=== PATIENT | female | born 1980 | race Caucasian/White ===

== ENCOUNTER 2018-11-06 18:55 | Inpatient (IN) | payer OTHER ==
[2018-11-06] MEDS ORDERED: GLUCOPHAGE PO ONE (21:40)
[2018-11-06] MEDS ORDERED: TYLENOL PO PRN (21:52)
[2018-11-06] MEDS ORDERED: GLUCOPHAGE PO SCH (22:00)
[2018-11-07 06:02] LABS: Hematocrit 36.1 % (30.3-42.9); Hemoglobin 12.3 gm/dl (10.1-14.3); Mean Corpuscular HGB Conc 34 % (30-34); Mean Corpuscular Volume 96 fl (79-97); Platelet Count 168 K/mm3 (140-440); Red Blood Count 3.76 M/mm3 (3.65-5.03); Red Cell Distribution Width 14.4 % (13.2-15.2)
[2018-11-07 06:24] LABS: Alanine Aminotransferase 10 units/L (7-56); Albumin 3.3 g/dL (3.9-5); BUN/Creatinine Ratio 27; Blood Urea Nitrogen 8 mg/dL (7-17); Calcium 9.9 mg/dL (8.4-10.2); Hemolysis Index 11
[2018-11-07] MEDS: HumuLIN R SUB-Q SCH ×3 (09:37→20:19)
--- NOTE | 2018-11-07 10:12 | Progress Note ---
Assessment and Plan - Patient Problems (1) 25 weeks gestation of Current Visit: Yes Status: Acute (2) Type 2 diabetes mellitus affecting in second trimester, antepartum Current Visit: Yes Status: Acute Plan to address problem: Continue glucose fasting and 2-hr PP. ADA diet. Insulin regimen 30R/34N in AM, 24R at dinner, 35N QHS. OB sonogram. (3) Uncontrolled blood glucose Current Visit: Yes Status: Acute (4) Advanced maternal age (AMA) in Current Visit: Yes Status: Acute (5) Previous section Current Visit: Yes Status: Acute Subjective - Subjective Date of service: 11/07/18 Principal diagnosis: SIUP at 25 weeks gestation Interval history: Patient is a 38 year old , LMP 04/30/18, EDC 02/16/19 at 25 weeks and 4 days gestation who was admitted last night for glucose control. She is a patient of [facility]. She has pre-gestational diabetes and was on metformin and insulin during the . Her fasting glucose has been between 105-166, and 2-hr PP between 119-259. She denies any contraction, fluid leakage or bleeding. She reports good movement. She is currently on 30R and 34N in AM, 24R at dinner, and 35N at bedtime. Objective - Vital Signs Vital Signs: Vital Signs - 12hr 11/06/18 11/07/18 23:12 09:26 Pulse Rate 77 83 Blood Pressure 118/62 117/59 - Exam Cardiovascular: Normal S1, Normal S2 Lungs: Clear to auscultation Vulva: both: normal FHR: category 1 Uterine Contraction Monitor Mode: External Uterine Contraction Pattern: Absent Deep Tendon Reflex Grade: Normal +2 - Labs Labs: Abnormal Labs 11/07/18 11/07/18 05:36 05:36 MCH 33 H Sodium 136 L Potassium 3.5 L Carbon Dioxide 20 L Creatinine 0.3 L Albumin 3.3 L Laboratory Results - last 24 hr 11/06/18 11/07/18 11/07/18 20:07 05:36 05:36 WBC 9.5 RBC 3.76 Hgb 12.3 Hct 36.1 MCV 96 MCH 33 H MCHC 34 RDW 14.4 Plt Count 168 Sodium 136 L Potassium 3.5 L Chloride 104.9 Carbon Dioxide 20 L Anion Gap 15 BUN 8 Creatinine 0.3 L Estimated GFR > 60 BUN/Creatinine Ratio 27 Glucose 99 POC Glucose 89 Hemoglobin A1c Calcium 9.9 Total Bilirubin 0.20 AST 13 ALT 10 Alkaline Phosphatase 49 Total Protein 6.4 Albumin 3.3 L Albumin/Globulin Ratio 1.1 11/07/18 11/07/18 11/07/18 05:36 06:19 09:47 WBC RBC Hgb Hct MCV MCH MCHC RDW Plt Count Sodium Potassium Chloride Carbon Dioxide Anion Gap BUN Creatinine Estimated GFR BUN/Creatinine Ratio Glucose POC Glucose 84 90 Hemoglobin A1c 5.7 Calcium Total Bilirubin AST ALT Alkaline Phosphatase Total Protein Albumin Albumin/Globulin Ratio - Results US- obstetric: pending
--- NOTE | 2018-11-07 15:03 | Ultrasound Report ---
ULTRASOUND BIOPHYSICAL PROFILE ULTRASOUND OB LIMITED INDICATION: Type 2 diabetes during , well-being. TECHNIQUE: Transabdominal ultrasound imaging. COMPARISON: None FINDINGS: breathing movement = 2 Gross body movement = 2 tone = 2 Qualitative amniotic fluid volume = 2 Total biophysical score = 8/8 A single intrauterine is identified. Amniotic fluid index is 21.6 cm. Presentation is cephalic. heart rate is 141 beats per minute. IMPRESSION: biophysical profile equals 8/8. Signer Name: Davian Lane Jr, MD Signed: 11/07/2018 2:58 PM Workstation Name: [id number]
--- NOTE | 2018-11-07 16:24 | Consultation ---
History of Present Illness Consult date: 11/07/18 Reason for consult: medical complication (diabetes) History of present illness: To: Dr. Nehal Bowman et al From: Aric Lechuga M.D. RE: LOPEZ GILSONMOUSTAPHA Tootie : 82 Poorly controlled diabetes at 25 weeks. Date: Wednesday, November 07, 2018 Patient is a 38 year old , LMP 04/30/18, EDC 02/16/19 at 25 weeks and 4 days gestation who was admitted last night for glucose control. She is a patient of [facility]. She has pre-gestational diabetes and was on metformin and insulin during the . Her fasting glucose has been between 105-166, and 2-hr PP between 119-259. She denies any contraction, fluid leakage or bleeding. She reports good movement. She is currently on 30R and 34N in AM, 24R at dinner, and 35N at bedtime. Her current blood sugars have been 89, 84, 90, 132 Past History - Obstetrical History : 5 Medications and Allergies Allergies Allergy/AdvReac Type Severity Reaction Status Date / Time No Known Allergies Allergy Verified 09/02/13 19:54 Home Medications Medication Instructions Recorded Confirmed Last Taken Type Ibuprofen [Motrin 600 MG tab] 600 mg PO Q6H PRN #30 tablet 10/03/13 11/07/18 Unknown Rx oxyCODONE /ACETAMINOPHEN [Percocet 2 tab PO Q4H PRN #30 tablet 10/03/13 11/07/18 Unknown Rx 5/325 mg] Sitagliptin Phos/Metformin HCl 1 tab PO BID #60 tablet 10/04/13 11/07/18 Unknown Rx [Janumet 50-1,000 mg] Active Meds: Active Medications Acetaminophen (Tylenol) 650 mg PO Q4H PRN PRN Reason: Pain MILD(1-3)/Fever >100.5/DANIELLE Insulin Human NPH (Humulin N) 34 unit SUB-Q QDDIAB [facility] Last Admin: 11/07/18 09:41 Dose: 34 unit Documented by: Insulin Human NPH (Humulin N) 35 unit SUB-Q QHS [facility] Last Admin: 11/06/18 23:13 Dose: 35 unit Documented by: Insulin Human Regular (Humulin R) 30 units SUB-Q QDDIAB [facility] Last Admin: 11/07/18 09:37 Dose: 30 units Documented by: Insulin Human Regular (Humulin R) 24 units SUB-Q QPMDIAB@1900 [facility] - Vital Signs Vital signs: Vital Signs Pulse BP 80 136/60 11/06/18 19:36 11/06/18 19:36 Temp Pulse Resp BP Pulse Ox 98.4 F 80 18 123/58 11/07/18 12:12 11/07/18 12:16 11/07/18 12:12 11/07/18 12:16 Results Result Diagrams: 11/07/18 05:36 11/07/18 05:36 Abnormal lab results 11/07/18 11/07/18 11/07/18 Range/Units 05:36 05:36 12:26 MCH 33 H (28-32) pg Sodium 136 L (137-145) mmol/L Potassium 3.5 L (3.6-5.0) mmol/L Carbon Dioxide 20 L (22-30) mmol/L Creatinine 0.3 L (0.7-1.2) mg/dL POC Glucose 132 H (70-105) Albumin 3.3 L (3.9-5) g/dL All other labs normal. Assessment and Plan ASSESSMENT: IUP at 25 weeks with pregestational diabetes. Improved control. Stable for discharge home and outpatient follow-up. Recommendations: 1. Nutritional counseling prior to discharge. 2. Consider social work consultation. 3. Discharge home. 4. Maintain dose insulin regimen 1. AM: 34 NPH and 30 Regular 2. PM: 24 Regular 3. HS: 35 NPH 5. Following discharge, you may schedule a follow-up appointment for this patient to evaluate her progress in one week with [facility]. Thank you for allowing us to participate in the care of this patient. We look forward to the opportunity to assist in her continued management. If you have any questions, I may be reached at [phone]. Aric Lechuga M.D. Maternal- Medicine Specialist
--- NOTE | 2018-11-07 19:26 | History and Physical Report ---
History of Present Illness Date of examination: 11/06/18 Date of admission: 11/06/18 18:59 Chief complaint: gestational diabetic, was brought in at 25+ wks for management of blood sugars. History of present illness: Patient is a 38 year old , LMP 04/30/18, EDC 02/16/19 at 25 weeks and 3 days gestation who was admitted 11/06/2018 for glucose control. She is a patient of [facility]. She has pre-gestational diabetes and was on metformin and insulin during the . Her fasting glucose has been between 105-166, and 2-hr PP between 119-259. She denies any contraction, fluid leakage or bleeding. She reports good movement. She is currently on 30R and 34N in AM, 24R at dinner, and 35N at bedtime. Past History Past Medical History: no pertinent history - Obstetrical History : 5 Medications and Allergies Allergies Allergy/AdvReac Type Severity Reaction Status Date / Time No Known Allergies Allergy Verified 09/02/13 19:54 Home Medications Medication Instructions Recorded Confirmed Last Taken Type Ibuprofen [Motrin 600 MG tab] 600 mg PO Q6H PRN #30 tablet 10/03/13 11/07/18 Unknown Rx oxyCODONE /ACETAMINOPHEN [Percocet 2 tab PO Q4H PRN #30 tablet 10/03/13 11/07/18 Unknown Rx 5/325 mg] Sitagliptin Phos/Metformin HCl 1 tab PO BID #60 tablet 10/04/13 11/07/18 Unknown Rx [Janumet 50-1,000 mg] Active Meds: Active Medications Acetaminophen (Tylenol) 650 mg PO Q4H PRN PRN Reason: Pain MILD(1-3)/Fever >100.5/DANIELLE Insulin Human NPH (Humulin N) 34 unit SUB-Q QDDIAB [facility] Last Admin: 11/07/18 09:41 Dose: 34 unit Documented by: Insulin Human NPH (Humulin N) 35 unit SUB-Q QHS [facility] Last Admin: 11/06/18 23:13 Dose: 35 unit Documented by: Insulin Human Regular (Humulin R) 30 units SUB-Q QDDIAB [facility] Last Admin: 11/07/18 09:37 Dose: 30 units Documented by: Insulin Human Regular (Humulin R) 24 units SUB-Q QPMDIAB@1900 [facility] Review of Systems All systems: negative - Vital Signs Vital signs: Vital Signs Pulse BP 80 136/60 11/06/18 19:36 11/06/18 19:36 Temp Pulse Resp BP Pulse Ox 98.3 F 73 18 110/54 11/07/18 17:30 11/07/18 16:43 11/07/18 16:42 11/07/18 16:43 - Physical Exam Breasts: Positive: deferred - Obstetrical FHR: auscultation normal Results Result Diagrams: 11/07/18 05:36 11/07/18 05:36 Abnormal lab results 11/07/18 11/07/18 11/07/18 Range/Units 05:36 05:36 12:26 MCH 33 H (28-32) pg Sodium 136 L (137-145) mmol/L Potassium 3.5 L (3.6-5.0) mmol/L Carbon Dioxide 20 L (22-30) mmol/L Creatinine 0.3 L (0.7-1.2) mg/dL POC Glucose 132 H (70-105) Albumin 3.3 L (3.9-5) g/dL All other labs normal. Assessment and Plan - Patient Problems (1) 25 weeks gestation of Current Visit: Yes Status: Acute (2) Advanced maternal age (AMA) in Current Visit: Yes Status: Acute (3) Previous section Current Visit: Yes Status: Acute (4) Type 2 diabetes mellitus affecting in second trimester, antepartum Current Visit: Yes Status: Acute Plan to address problem: Will start with current insulin and metformin doses with post prandial glucose assessments which data will guide any necessary adjustments. MFM consulted. (5) Uncontrolled blood glucose Current Visit: Yes Status: Acute
[2018-11-08 08:07] VITALS: BP 99/54
[2018-11-08] MEDS: HumuLIN R SUB-Q SCH (09:55)
--- NOTE | 2018-11-08 10:05 | Progress Note ---
Assessment and Plan - Patient Problems (1) 25 weeks gestation of Current Visit: Yes Status: Acute (2) Type 2 diabetes mellitus affecting in second trimester, antepartum Current Visit: Yes Status: Acute Plan to address problem: Continue glucose fasting and 2-hr PP. ADA diet. Insulin regimen 30R/34N in AM, 24R at dinner, 35N QHS. OB sonogram done. Patient will be discharged home today on new insulin regimen as above. (3) Uncontrolled blood glucose Current Visit: Yes Status: Acute (4) Advanced maternal age (AMA) in Current Visit: Yes Status: Acute (5) Previous section Current Visit: Yes Status: Acute Subjective - Subjective Date of service: 11/08/18 Principal diagnosis: SIUP at 25 weeks gestation Interval history: Patient is a 38 year old , LMP 04/30/18, EDC 02/16/19 at 25 weeks and 5 days gestation who was admitted 2 days ago for glucose control. She is a patient of [facility]. She has pre-gestational diabetes and was on metformin and insulin during the . Her fasting glucose has been between 105-166, and 2-hr PP between 119-259. She denies any contraction, fluid leakage or bleeding. She reports good movement. She is currently on 30R and 34N in AM, 24R at dinner, and 35N at bedtime. Her fasting glucose was 79 this AM and 2-hr PP 120-150's. [facility] consult was done. Sonogram showed DERICK of 21.6, BPP 8/8. Objective - Vital Signs Vital Signs: Vital Signs - 12hr 11/08/18 11/08/18 11/08/18 01:26 01:35 05:33 Temperature 98.5 F Pulse Rate 69 73 Respiratory 18 Rate Blood Pressure 106/56 104/53 11/08/18 11/08/18 11/08/18 05:42 08:06 09:12 Temperature 98.7 F 97.6 F Pulse Rate 78 Respiratory 18 Rate Blood Pressure 99/54 - Exam Cardiovascular: Normal S1, Normal S2 Lungs: Clear to auscultation Vulva: both: normal FHR: category 1 Uterine Contraction Monitor Mode: External Uterine Contraction Pattern: Absent Deep Tendon Reflex Grade: Normal +2 - Labs Labs: Abnormal Labs 11/07/18 11/07/18 11/07/18 05:36 05:36 12:26 MCH 33 H Sodium 136 L Potassium 3.5 L Carbon Dioxide 20 L Creatinine 0.3 L POC Glucose 132 H Albumin 3.3 L 11/07/18 11/07/18 14:35 20:31 MCH Sodium Potassium Carbon Dioxide Creatinine POC Glucose 114 H 169 H Albumin Laboratory Results - last 24 hr 11/07/18 11/07/18 11/07/18 12:26 14:35 20:31 POC Glucose 132 H 114 H 169 H 11/08/18 05:39 POC Glucose 79 - Results US- obstetric: report reviewed
--- NOTE | 2018-11-08 10:09 | Discharge Summary ---
Providers - Providers Date of Admission: 11/06/18 18:59 Attending physician: ALEX ALAS MD 11/06/18 21:51 Consult to Physician [CONS] Routine Comment: Consulting Provider: GILMER STACK Physician Instructions: Reason For Exam: IUP @ 29 week; Preeclampsia 11/07/18 08:00 Consult to Dietitian/Nutrition [CONS] Stat Physician Instructions: Reason For Exam: Reason for Consult: Diet education Primary care physician: ALEX ALAS MD Hospitalization Discharge diagnosis: other (Pre-gestational diabetes type1. Uncontrolled glucose.) Hospital course: Patient is a 38 year old , LMP 04/30/18, EDC 02/16/19 at 25 weeks and 5 days gestation who was admitted 2 days ago for glucose control. She is a patient of [facility]. She has pre-gestational diabetes and was on metformin and insulin during the . Her fasting glucose has been between 105-166, and 2-hr PP between 119-259. She denies any contraction, fluid leakage or bleeding. She reports good movement. She is currently on 30R and 34N in AM, 24R at dinner, and 35N at bedtime. Her fasting glucose was 79 this AM and 2-hr PP 120-150's. [facility] consult was done. Sonogram showed DERICK of 21.6, BPP 8/8. Condition at discharge: Stable Disposition: DC-01 TO HOME OR SELFCARE - Discharge Diagnoses (1) 25 weeks gestation of Status: Acute (2) Type 2 diabetes mellitus affecting in second trimester, antepartum Status: Acute (3) Uncontrolled blood glucose Status: Acute (4) Advanced maternal age (AMA) in Status: Acute (5) Previous section Status: Acute Plan - Provider Discharge Summary Activity: routine Diet: routine Instructions: routine Additional instructions: [] Smoking cessation referral if applicable(refer to patient education folder for contact #) [] Refer to [facility] Booklet Call your doctor immediately for: * Fever > 100.5 * Heavy vaginal bleeding ( >1 pad per hour) * Severe persistent headache * Shortness of breath * Reddened, hot, painful area to leg or breast * Drainage or odor from incision. * Keep incision clean and dry at all times and follow doctor's instructions regarding bathing/showering - Follow up plan Follow up: ALEX ALAS MD [Primary Care Provider] - 7 Days
== END 2018-11-08 11:25 | disposition home or self-care (01) | DRG 833 ==
LOC: EDBD → TRG 18:55 → LD 18:59 → OBSVTOIN 18:59 → APU 11-07 21:01
PROVIDERS: ADMIT Obstetrics & Gynecology; ATTEND Obstetrics & Gynecology
DX: O24.419 Gestational diabetes mellitus in pregnancy, unspecified control (principal); Z3A.25 25 weeks gestation of pregnancy
CPT/HCPCS: 36415; 76815; 76819; 80053; 82962; 83036; 85027; G0378; J1815

== ENCOUNTER 2018-12-25 13:03 | Outpatient (CLI) | payer OTHER ==
[2018-12-25 13:49] VITALS: BP 111/53
--- NOTE | 2018-12-25 15:13 | Ultrasound Report ---
ULTRASOUND BIOPHYSICAL PROFILE INDICATION: efw miko. COMPARISON: None available. FINDINGS: heart rate is 152 beats per minute. breathing movement = 2 Gross body movement = 2 tone = 2 Qualitative amniotic fluid volume = 2 IMPRESSION: biophysical profile = 11/29 Signer Name: Davian Lane Jr, MD Signed: 12/25/2018 3:09 PM Workstation Name: [id number]
--- NOTE | 2018-12-25 15:13 | Ultrasound Report ---
OB ULTRASOUND >= 14 WEEKS FETUS INDICATION: efw miko COMPARISON: 11/07/2018 FINDINGS: A single gestation intrauterine is present with cephalic presentation. heart tones me asure 139 bpm. Amniotic fluid volume is normal with a fluid index of 12.5. The intracranial structures, spine, four-chamber heart, diaphragm, umbilical cord, cord inserti on, stomach, kidneys, and bladder show no sonographic abnormality. Biparietal diameter is 8.3 cm which equals 33 weeks 2 days. Head circumference is 30.7 cm which equals 34 weeks 1 day. Abdominal circumference is 30.5 cm which equals 34 weeks 3 days. Femur length is 6.0 cm which equals 31 weeks 1 day. Overall estimated sonographic age is 33 weeks 2 days. HC/AC ratio: 1.0 Cephalic index: 80.0 Estimated weight 2184 g. IMPRESSION: Viable single intrauterine as described. Signer Name: Davian Lane Jr, MD Signed: 12/25/2018 3:08 PM Workstation Name: [id number]
== END 2018-12-25 17:00 | disposition still patient (30) ==
LOC: ED 13:03 → TRG 13:03 → ED 13:05 → EDSTATUS 14:36 → TRG 17:00 → EDSTATUS 17:19
PROVIDERS: ATTEND Obstetrics & Gynecology
DX: O36.8130 Decreased fetal movements, third trimester, not applicable or unspecified (principal); Z3A.32 32 weeks gestation of pregnancy
CPT/HCPCS: 59025; 76816; 76819

== ENCOUNTER 2018-12-29 13:18 | Outpatient (CLI) | payer OTHER ==
[2018-12-29] MEDS ORDERED: LACTATED RINGERS 500 ML IV ONE (13:36)
[2018-12-29 13:45] VITALS: BP 123/62
--- NOTE | 2018-12-29 15:45 | Ultrasound Report ---
ULTRASOUND BIOPHYSICAL PROFILE INDICATION / CLINICAL INFORMATION: Nonreassuring heart tones. Evaluate well-being. COMPARISON: Obstetrical ultrasound biophysical profile, 12/25/2018 FINDINGS: BREATHING MOVEMENT = 2 GROSS BODY MOVEMENT = 2 TONE = 2 QUALITATIVE AMNIOTIC FLUID VOLUME = 2 TOTAL BIOPHYSICAL SCORE = 88 AMNIOTIC FLUID INDEX (cm) = 15.4 PRESENTATION: Cephalic. HEART RATE (beats per minute): 137 IMPRESSION: 1. biophysical profile = 11/29 Signer Name: Kalee Núñez MD Signed: 12/29/2018 3:41 PM Workstation Name: [id number]
--- NOTE | 2018-12-29 15:47 | Ultrasound Report ---
US OB limited INDICATION / CLINICAL INFORMATION: nrfht's. COMPARISON: 12/25/2018 FINDINGS: Single, viable intrauterine in cephalic presentation. heart rate 137. Amniotic fluid volume is normal, fluid index 15 cm. Signer Name: Jose Gutierrez MD Signed: 12/29/2018 3:42 PM Workstation Name: [id number]
== END 2018-12-29 15:41 | disposition home or self-care (01) ==
LOC: EDBD 13:18 → TRG 13:18
PROVIDERS: ATTEND Obstetrics & Gynecology
DX: O36.8130 Decreased fetal movements, third trimester, not applicable or unspecified (principal); Z3A.33 33 weeks gestation of pregnancy
CPT/HCPCS: 59025; 76815; 76819

== ENCOUNTER 2019-01-29 15:29 | Outpatient (CLI) | payer SELFPAY ==
--- NOTE | 2019-01-29 17:29 | Ultrasound Report ---
Limited OB Ultrasound with biophysical profile HISTORY: bpp. TECHNIQUE: Grayscale and color Doppler imaging performed. COMPARISON: Limited OB ultrasound from 12/29/2018 FINDINGS: The fetus received a score of 2 out of 2 for breathing movement and DERICK. The fetus received a score of 0 out of 2 for movement and posture/tone. Total score was 4 out of 8. Heart rate wa s 158 bpm. IMPRESSION: Biophysical profile score of 4 out of 8, previously 8 out of 8 in December. Signer Name: Ge Delgado MD Signed: 01/29/2019 5:25 PM Workstation Name: [id number]
[2019-01-29] MEDS ORDERED: DOCUSATE SODIUM 100 MG CAP PO PRN (17:44)
[2019-01-29] MEDS ORDERED: ACETAMINOPHEN 325 MG TAB PO PRN (17:44)
[2019-01-29 21:15] VITALS: BP 122/56
[2019-01-29] MEDS ORDERED: oxyCODONE /ACETAMINOPHEN 5-325MG TAB PO PRN (22:19)
[2019-01-29] MEDS ORDERED: IBUPROFEN 600 MG TAB PO PRN (22:19)
[2019-01-29] MEDS ORDERED: DEXTROSE 50% IN WATER (25GM) 50 ML SYRINGE IV PRN (23:16)
--- NOTE | 2019-01-29 23:21 | Consultation ---
History of Present Illness - Reason for Consult Consult date: 01/29/19 Management of diabetes - History of Present Illness 38-year-old woman who is 38 weeks who was brought to the hospital for a biophysical profile. The results of biophysical profile were concerning, therefore she is being held for observation by obstetrics. Medicine consulted for management of diabetes. The patient takes oral medications at home, does not take insulin. She denies polyuria , polydipsia or blurred vision. Past Medical History: diabetes (on insulin q am 32 N/34R qpm 36N/24 R) Past Surgical History: other (on anal spincter) HUB BANDER History: other (positive gbs) social hx, denies smoking tobacco or illicit drug use, lives with family Family/Genetic History: diabetes, cystic fibrosis/trait Medications and Allergies Allergies Allergy/AdvReac Type Severity Reaction Status Date / Time No Known Allergies Allergy Verified 09/02/13 19:54 Home Medications Medication Instructions Recorded Confirmed Last Taken Type Ibuprofen [Motrin 600 MG tab] 600 mg PO Q6H PRN #30 tablet 10/03/13 11/07/18 Unknown Rx oxyCODONE /ACETAMINOPHEN [Percocet 2 tab PO Q4H PRN #30 tablet 10/03/13 11/07/18 Unknown Rx 5/325 mg] Sitagliptin Phos/Metformin HCl 1 tab PO BID #60 tablet 10/04/13 11/07/18 Unknown Rx [Janumet 50-1,000 mg] Active Meds: Active Medications Acetaminophen (Tylenol) 650 mg PO Q4H PRN PRN Reason: Pain MILD(1-3)/Fever >100.5/DANIELLE Dextrose (D50w (25gm) Syringe) 50 ml IV PRN PRN PRN Reason: Hypoglycemia Docusate Sodium (Colace) 100 mg PO Q12H PRN PRN Reason: Constipation Ibuprofen (Ibuprofen) 600 mg PO Q6H PRN PRN Reason: Pain, Mild (1-3) Insulin Human Lispro (Humalog) 0 unit SUB-Q ACHS DEENA; Protocol Multivitamins/Iron/Calcium ( Vitamin) 1 each PO QDAY DEENA Oxycodone/Acetaminophen (Percocet 5/325) 2 tab PO Q4H PRN PRN Reason: Pain, Moderate (4-6) Review of Systems All systems: negative Constitutional: no weight loss Ears, nose, mouth and throat: no ear pain Breasts: no deferred Cardiovascular: no chest pain Respiratory: no cough Gastrointestinal: no abdominal pain Genitourinary Female: no dyspareunia Rectal: no pain Musculoskeletal: no neck stiffness Integumentary: no rash Neurological: no head injury Psychiatric: no anxiety Endocrine: no cold intolerance Hematologic/Lymphatic: no easy bruising Allergic/Immunologic: no urticaria Exam - Constitutional Vitals: Temp Pulse Resp BP Pulse Ox 98.3 F 80 16 122/56 01/29/19 19:29 01/29/19 21:13 01/29/19 19:29 01/29/19 21:13 General appearance: Present: no acute distress, well-nourished - EENT Eyes: Present: PERRL ENT: hearing intact, clear oral mucosa - Neck Neck: Present: supple, normal ROM - Respiratory Respiratory effort: normal Respiratory: bilateral: CTA - Cardiovascular Heart Sounds: Present: S1 & S2. Absent: rub, click - Extremities Extremities: pulses symmetrical, No edema Peripheral Pulses: within normal limits - Abdominal General gastrointestinal: Present: soft, other (Gravid uterus) Female genitourinary: Present: normal - Integumentary Integumentary: Present: clear, warm, dry - Musculoskeletal Musculoskeletal: gait normal, strength equal bilaterally - Psychiatric Psychiatric: appropriate mood/affect, intact judgment & insight - Neurologic Neurologic: CNII-XII intact, moves all extremities Results - Labs CBC & Chem 7: 01/29/19 23:42 01/29/19 23:42 Assessment and Plan 38-year-old woman for whom medicine has been consulted for management of diabetes. 38 weeks gestation Management per obstetrics Diabetes continue basal and bolus insulin along with SSI DVT prophylaxis Per primary team
[2019-01-30 00:15] LABS: Basophils % (Auto) 0.5 % (0.0-1.8); Eosinophils # (Auto) 0.1 K/mm3 (0.0-0.4); Eosinophils % (Auto) 1.3 % (0.0-4.3); Lymphocytes # (Auto) 2.3 K/mm3 (1.2-5.4); Lymphocytes % (Auto) 26.2 % (13.4-35.0); Mean Corpuscular HGB Conc 33 % (30-34); Mean Corpuscular Volume 95 fl (79-97); Monocytes # (Auto) 1.1 K/mm3 (0.0-0.8); Monocytes % (Auto) 12.5 % (0.0-7.3); Platelet Count 134 K/mm3 (140-440); Red Blood Count 4.11 M/mm3 (3.65-5.03); Red Cell Distribution Width 14.7 % (13.2-15.2)
[2019-01-30 00:26] LABS: Alanine Aminotransferase 14 units/L (7-56); Albumin 3.1 g/dL (3.9-5); BUN/Creatinine Ratio 16; Blood Urea Nitrogen 8 mg/dL (7-17); Calcium 10.1 mg/dL (8.4-10.2); Hemolysis Index 59
[2019-01-30] MEDS ORDERED: INSULIN LISPRO 100 UNIT/ML SUB-Q SCH ×4 (01:00→07:30)
--- NOTE | 2019-01-30 01:25 | Ultrasound Report ---
LIMITED OBSTETRIC ULTRASOUND WITH BIOPHYSICAL PROFILE HISTORY: Assess biophysical profile COMPARISON: biophysical profile one day prior TECHNIQUE: Limited OB ultrasound performed with biophysical profile. FINDINGS: ANATOMY: Detailed anatomic survey was not requested. Cardiac activity is detected at136 beats per minute. Th e fetus is in cephalic position. BIOPHYSICAL PROFILE: Movement: 2 Tone: 2 Breathin Amniotic Fluid: 2 Total: 8 out of 8 IMPRESSION 1. Biophysical Profile 8 out of 8. Signer Name: Aarti Khalil MD Signed: 01/30/2019 1:20 AM Workstation Name: [id number]
[2019-01-30] MEDS ORDERED: DEXTROSE 50% IN WATER (25GM) 50 ML SYRINGE IV PRN (06:05)
[2019-01-30] MEDS ORDERED: INSULIN NPH, HUMAN 100 UNIT/1 ML SUB-Q SCH (08:00)
[2019-01-30] MEDS ORDERED: PRENATAL VIT27-FE FUMARATE-FOLIC ACID VIT TAB PO SCH (10:00)
== END 2019-01-30 01:54 | disposition home or self-care (01) ==
LOC: TRG 15:29 → LD 17:45 → TRG 01-30 01:54
PROVIDERS: ATTEND Obstetrics & Gynecology
DX: O26.893 Other specified pregnancy related conditions, third trimester (principal); Z3A.37 37 weeks gestation of pregnancy
CPT/HCPCS: 36415; 76819; 80053; 82962; 83036; 83735; 84100; 85025; J1815

== ENCOUNTER 2019-02-01 08:57 | Inpatient (IN) | payer OTHER ==
[2019-02-01] MEDS ORDERED: PITOCin/NS 20 UNIT/1000ML DRIP 20 UNITS/1,000 ML BAG IV SCH ×3 (10:00→14:00)
[2019-02-01] MEDS ORDERED: PEPCID IV NR (10:00)
[2019-02-01] MEDS ORDERED: LACTATED RINGERS 1,000 ML IV SCH ×2 (10:00→12:00)
[2019-02-01] MEDS ORDERED: BICITRA PO NR (10:00)
[2019-02-01] MEDS ORDERED: REGLAN IV NR (10:00)
[2019-02-01] MEDS ORDERED: ANCEF/STERILE WATER 2 GM/20 ML 2 GM/20 ML SYRINGE IV NR ×2 (10:00→12:00)
[2019-02-01 10:04] LABS: Basophils % (Auto) 0.5 % (0.0-1.8); Eosinophils # (Auto) 0.1 K/mm3 (0.0-0.4); Eosinophils % (Auto) 1.3 % (0.0-4.3); Hematocrit 40.8 % (30.3-42.9); Lymphocytes # (Auto) 1.9 K/mm3 (1.2-5.4); Lymphocytes % (Auto) 23.9 % (13.4-35.0); Mean Corpuscular HGB Conc 34 % (30-34); Mean Corpuscular Volume 94 fl (79-97); Monocytes # (Auto) 0.9 K/mm3 (0.0-0.8); Monocytes % (Auto) 11.7 % (0.0-7.3); Platelet Count 129 K/mm3 (140-440); Red Blood Count 4.33 M/mm3 (3.65-5.03); Red Cell Distribution Width 14.5 % (13.2-15.2)
--- NOTE | 2019-02-01 10:31 | Anesthesia Consultation ---
Anesthesia Consult and Med Hx Date of service: 02/01/19 - Airway Anesthetic Teeth Evaluation: Good ROM Head & Neck: Adequate Mental/Hyoid Distance: Adequate Mallampati Class: Class II Intubation Access Assessment: Good - Pulmonary Exam CTA: Yes - Cardiac Exam Cardiac Exam: RRR - Pre-Operative Health Status ASA Pre-Surgery Classification: ASA2 Proposed Anesthetic Plan: Spinal - Pulmonary Hx Asthma: No COPD: No Hx Pneumonia: No - Cardiovascular System Hx Hypertension: No - Central Nervous System Hx Seizures: No Hx Psychiatric Problems: No - Endocrine Hx Renal Disease: No Hx End Stage Renal Disease: No Hx Insulin Dependent Diabetes: Yes Hx Hypothyroidism: No Hx Hyperthyroidism: No - Hematic Hx Anemia: No Hx Sickle Cell Disease: No - Other Systems Hx Alcohol Use: No
[2019-02-01] MEDS ORDERED: DILAUDID IV PRN ×2 (10:33)
[2019-02-01] MEDS ORDERED: NARCAN 0.4 MG/1 ML IV PRN ×2 (10:33→13:51)
[2019-02-01] MEDS ORDERED: PHENERGAN PR PRN (10:33)
[2019-02-01] MEDS ORDERED: PHENERGAN PO PRN (10:33)
[2019-02-01] MEDS ORDERED: ZOFRAN IV PRN ×2 (10:33→13:51)
--- NOTE | 2019-02-01 10:33 | Anesthesia Day of Surgery ---
Anesthesia Day of Surgery - Day of Surgery Patient Examined: Yes Patient H&P Reviewed: Yes Patient is NPO: Yes
[2019-02-01] MEDS ORDERED: SODIUM CHLORIDE FLUSH SYRINGE 10 ML IV SCH (11:00)
[2019-02-01] MEDS ORDERED: fentaNYL-BUPIV 2 MCG/ML-0.125% 200 MCG/100 ML BAG EPIDURAL SCH (11:00)
--- NOTE | 2019-02-01 11:33 | History and Physical Report ---
History of Present Illness Date of examination: 02/01/19 Date of admission: 02/01/19 08:57 Chief complaint: Here for a delivery. History of present illness: . ARIEL 02/15/2019. X1 delivery previously. Past History Past Medical History: diabetes Past Surgical History: other (surgical repair of perineum) - Obstetrical History Expected Date of Delivery: 02/15/19 Actual Gestation: 38 Week(s) 0 Day(s) : 5 Medications and Allergies Allergies Allergy/AdvReac Type Severity Reaction Status Date / Time No Known Allergies Allergy Verified 02/01/19 09:23 Home Medications Medication Instructions Recorded Confirmed Last Taken Type Ibuprofen [Motrin 600 MG tab] 600 mg PO Q6H PRN #30 tablet 10/03/13 11/07/18 Unknown Rx oxyCODONE /ACETAMINOPHEN [Percocet 2 tab PO Q4H PRN #30 tablet 10/03/13 11/07/18 Unknown Rx 5/325 mg] Sitagliptin Phos/Metformin HCl 1 tab PO BID #60 tablet 10/04/13 11/07/18 Unknown Rx [Janumet 50-1,000 mg] Active Meds: Active Medications Citric Acid/Sodium Citrate (Bicitra) 30 ml PO ONCE NR Stop: 02/01/19 12:00 Famotidine (Pepcid) 20 mg IV ONCE NR Stop: 02/01/19 14:00 Last Admin: 02/01/19 11:08 Dose: 20 mg Documented by: Hydromorphone HCl (Dilaudid) 0.5 mg IV Q5M PRN PRN Reason: BREAK Stop: 02/01/19 23:00 Hydromorphone HCl (Dilaudid) 0.5 mg IV Q4H PRN PRN Reason: breakthrough pain > 7/10 Oxytocin/Sodium Chloride (Pitocin/Ns 20 Unit/1000ml Drip) 20 units in 1,000 mls @ 0 mls/hr IV TITR DEENA Lactated Ringer's (Lactated Ringers) 1,000 mls @ 2,250 mls/hr IV PREOP DEENA Stop: 02/02/19 10:27 Last Admin: 02/01/19 10:05 Dose: 2,250 mls/hr Documented by: Cefazolin Sodium (Ancef/Sterile Water 2 Gm/20 Ml) 2 gm in 20 mls @ 80 mls/hr IV PREOP NR; Protocol Stop: 02/01/19 14:00 Fentanyl/Bupivacaine/Sodium Chlor (Fentanyl-Bupiv 2 Mcg/Ml-0.125%) 200 mcg in 100 mls @ 8 mls/hr EPIDURAL TITRATE DEENA; Protocol Metoclopramide HCl (Reglan) 10 mg IV ONCE NR Stop: 02/01/19 12:00 Last Admin: 02/01/19 11:08 Dose: 10 mg Documented by: Naloxone HCl (Narcan 0.4 Mg/1 Ml) 0.2 mg IV Q2MIN PRN PRN Reason: Res Rate </= 8 or 02 SAT < 92% Ondansetron HCl (Zofran) 4 mg IV Q8H PRN PRN Reason: Nausea And Vomiting Promethazine HCl (Phenergan) 25 mg PO Q6H PRN PRN Reason: Nausea And Vomiting Promethazine HCl (Phenergan) 25 mg MD Q6H PRN PRN Reason: Nausea And Vomiting Sodium Chloride (Sodium Chloride Flush Syringe 10 Ml) 10 ml IV PRN [facility] Review of Systems All systems: negative - Vital Signs Vital signs: Vital Signs Temp Resp 97.8 F 18 02/01/19 09:25 02/01/19 09:25 Temp Pulse Resp BP Pulse Ox 97.8 F 79 18 97 02/01/19 09:25 02/01/19 11:24 02/01/19 09:25 02/01/19 11:24 - Physical Exam Breasts: Positive: deferred Lungs: Positive: Normal air movement Abdomen: Positive: normal appearance, distention. Negative: tenderness Deep Tendon Reflex Grade: Normal +2 - Obstetrical FHR: auscultation normal Results Result Diagrams: 02/01/19 09:29 Abnormal lab results 02/01/19 Range/Units 09:29 Plt Count 129 L (140-440) K/mm3 Rush % (Auto) 11.7 H (0.0-7.3) % Rush # 0.9 H (0.0-0.8) K/mm3 All other labs normal. Assessment and Plan - Patient Problems (1) Previous delivery affecting , antepartum Current Visit: Yes Status: Acute (2) Term Current Visit: Yes Status: Acute (3) Type 2 diabetes mellitus affecting in second trimester, antepartum Current Visit: No Status: Acute Plan to address problem: [facility] recommended delivery at 38 wks gestation due to AMA and diabetes. Due to her previous a repat is being readied for. Bilateral salpingectomies will be done. (4) Request for sterilization Current Visit: Yes Status: Acute Plan to address problem: For bilateral salpingectomies.
[2019-02-01] MEDS ORDERED: BICITRA PO ONE (11:39)
[2019-02-01] MEDS ORDERED: REGLAN IV ONE (11:39)
[2019-02-01] MEDS ORDERED: ANCEF/STERILE WATER 2 GM/20 ML IV ONE (11:45)
[2019-02-01] MEDS ORDERED: WATER FOR IRRIG STERILE IR ONE (12:08)
[2019-02-01] MEDS ORDERED: NACL 0.9% IR ONE (12:08)
[2019-02-01] MEDS ORDERED: ZOFRAN ONE (12:17)
[2019-02-01] MEDS ORDERED: PHENYLEPHRINE/NS Syringe 1,000 MCG/10 ML IV ONE (12:17)
[2019-02-01] MEDS ORDERED: DEXMEDETOMIDINE IV ONE (12:17)
[2019-02-01] MEDS ORDERED: BENADRYL ONE (12:39)
[2019-02-01] MEDS ORDERED: TORADOL ONE (12:39)
[2019-02-01] MEDS ORDERED: DILAUDID ONE (13:09)
[2019-02-01] MEDS ORDERED: D50W (25GM) Syringe IV ONE (13:28)
--- NOTE | 2019-02-01 13:50 | Post Anesthesia Evaluation ---
- Post Anesthesia Evaluation Patient Participated: Yes Airway Patent: Yes Stable Respiratory Function: Yes Nausea/Vomiting: No Temp > 96.8F: Yes Pain Manageable: Yes Adequeate Hydration: Yes Anesthesia Complications: No Block Receding Appropriately: Yes Patient on Ventilator: No
[2019-02-01] MEDS ORDERED: TYLENOL PO PRN (13:51)
[2019-02-01] MEDS ORDERED: LANSINOH TP PRN (13:51)
[2019-02-01] MEDS ORDERED: MORPHINE IV PRN (13:51)
[2019-02-01] MEDS ORDERED: TUCKS PAD TP PRN (13:51)
[2019-02-01] MEDS ORDERED: SODIUM CHLORIDE FLUSH SYRINGE 10 ML IV NR (14:00)
--- NOTE | 2019-02-01 14:10 | Operative Report ---
Operative Report Operative Report: Date of surgery: 08/02/2018 Preoperative diagnoses: Term , insulin-dependent gestational diabetes , previous section, request for sterilization, probable peritoneal adhesions Postoperative diagnoses: The same. Peritoneal adhesions were present. Operation: Lower segment transverse delivery, bilateral salpingectomies, lysis of adhesions. Surgeon:Leonel Bowman MD Tool Radial Drill Press Set Up Operator: Jeff Yuen CRNA Anesthesia: Spinal block Estimated blood loss: 500 mL Complications: None Findings: There was a live baby boy in cephalic presentation weighing 8 lbs. 12 oz. scores were 7 and 9. The lower anterior aspect of the uterus was densely bound to both the inferior aspects of the greater omentum as well as to the anterior parietal peritoneum adjacent to it. Both fallopian tubes and ovaries were grossly normal. The uterus was otherwise an unremarkable gravid structure. Procedure in detail: The patient was taken to the operating room and given a spinal block. Patient was placed in the straight supine position and a Tubbs catheter was inserted. The patient was prepped in the abdomen. The drapes were placed. A timeout was done. With the go ahead from the helpdesk manager, a Pfannenstiel incision was made. This incision was carried across the subcutaneous layer to the fascia which was also divided transversely. The recti abdominis muscle flaps were stripped from the fascia using a combination of blunt and sharp dissections. The muscles were in the midline to gain access to the anterior parietal peritoneum which was divided after excluding any underlying viscera. The access to the peritoneal cavity was then widened by manual stretching. The bladder blade was applied. The utero vesicle peritoneal flap was divided transversely allowing the bladder to be displaced caudally. The uterine incision was placed in the lower segment transversely. The uterine incision was carried to the decidual layer. The uterine incision was extended on both sides using the bandage scissors. The amniotic sac was ruptured with clear fluid. The head was lifted out of the false maternal pelvis and delivered through the incision using fundal pressure. The airways were bulb suctioned beginning with the mouth. Continuing fundal pressure combined with traction on the mandibular processes of the jaw delivered the rest of the baby. The umbilical cord was double clamped and divided. The baby was carefully transferred to the pediatric team. The placenta was manually removed from the uterine cavity. The uterine cavity was explored and was empty of any placental remnants. The uterine incision was repaired in 2 layers with #1 Vicryl. The surgical line on the uterus was hemostatic. The fallopian tubes were excised completely after segments of the mesosalpinx had been isolated and tied off with 2-0 Vicryl. Hemostasis within both adnexa was excellent. The tissue samples were sent off for histopathological examination. The adhesions encountered within the peritoneal cavity were carefully defined , divided and suture ligated with 2-0 Vicryl. Hemostasis was excellent. Blood and clots were cleared from the peritoneal cavity. The anterior parietal peritoneum was repaired with #1 Vicryl. The fascia was repaired with #1 Vicryl. The subcutaneous layer was made hemostatic using the Bovie before the skin was closed subcuticularly with 4-0 Vicryl. There were no complications. The estimated blood loss was 500 mL. All sponges and instrument counts were correct. Patient was safely transferred to the recovery room.
[2019-02-01] MEDS ORDERED: LACTATED RINGERS 1,000 ML ONE (19:20)
[2019-02-01] MEDS: ANCEF/NS 1 GM/50 ML 1 GM/50 ML BAG IV SCH (20:01)
[2019-02-01] MEDS: TORADOL IV PRN (23:04)
[2019-02-02 01:38] LABS: Hemoglobin 12.6 gm/dl (10.1-14.3)
[2019-02-02 02:23] LABS: Hematocrit 37.1 % (30.3-42.9)
[2019-02-02] MEDS: ANCEF/NS 1 GM/50 ML 1 GM/50 ML BAG IV SCH (04:39)
[2019-02-02] MEDS ORDERED: BOOSTRIX IM ONE (06:00)
[2019-02-02] MEDS: TORADOL IV PRN (06:58)
[2019-02-02] MEDS: FEOSOL PO SCH (10:27)
[2019-02-02] MEDS: PRENATAL VITAMIN PO SCH (10:27)
[2019-02-02] MEDS: NORCO 5/325 PO PRN ×2 (10:32→21:20)
--- NOTE | 2019-02-02 14:00 | Progress Note ---
Assessment and Plan A: /postop day 1 S/P repeat low transverse section, bilateral salpingectomies, and lysis of adhesions. Diabetes. P: Encouraged ambulation. Continue current management. Subjective - Subjective Date of service: 02/02/19 Principal diagnosis: /postop day 1 S/P repeat low transverse section and Interval history: /postop day 1 S/P repeat low transverse section, bilateral salpingectomies, and lysis of adhesions. Patient is doing well; her sugars have been controlled. Voiding without difficulty, ambulating well, and passing gas. Tolerating a regular diet. Patient denies headache, cough, shortness of breath, chest pain, abdominal pain, leg pain, heavy vaginal bleeding, or nausea/vomiting. Patient reports: appetite normal, voiding normally, pain well controlled, flatus, ambulating normally, no dizzy ambulation, no nauseated [place]: doing well Objective - Vital Signs Latest vital signs: Vital Signs Temp Pulse Resp BP BP Pulse Ox 02/02/19 08:11 97.6 F 77 16 126/53 94 02/02/19 04:30 98.8 F 61 18 103/67 02/02/19 00:00 98.7 F 77 18 121/74 02/01/19 20:00 98.7 F 77 18 137/77 02/01/19 15:22 97.8 F 19 02/01/19 15:20 97.8 F 56 L 16 109/58 99 02/01/19 15:18 109/58 02/01/19 14:45 97.8 F 61 11 L 110/61 98 02/01/19 14:30 60 14 100/54 97 02/01/19 14:15 52 L 11 L 121/65 98 02/01/19 14:05 53 L 11 L 123/64 98 02/01/19 14:00 53 L 12 122/68 98 Intake and Output 02/01/19 02/02/19 02/02/19 23:59 07:59 15:59 Intake Total 350 Output Total 1200 900 Balance -850 -900 Intake: IV 50 ANCEF/NS 1 GM/50 ML 1 gm 50 In 50 ml @ 100 mls/hr IV Q8H DEENA Rx#:[id number] Intake, Free Water 300 Output: Urine 1200 900 Indwelling Catheter 1200 900 Other: Total, Output Amount 1200 900 # Voids Void 0 Weight 85.275 kg Patient Weight 02/02/19 23:59 Weight 85.275 kg - Exam Cardiovascular: Present: Regular rate, Normal S1, Normal S2, No murmurs Lungs: Present: Clear to auscultation Abdomen: Present: normal appearance, soft, normal bowel sounds. Absent: distention, tenderness, guarding, rigidity Uterus: Present: normal, firm, fundal height below umbilicus. Absent: bogginess, tenderness Extremities: Present: normal, edema (mild pedal edema bilaterally). Absent: tenderness Incision: Present: normal, dry, dressed - Labs Labs: Abnormal lab results 02/01/19 Range/Units 13:29 POC Glucose 67 L (70-105)
[2019-02-02] MEDS: IBUPROFEN PO PRN (14:15)
[2019-02-03] MEDS: IBUPROFEN PO PRN ×2 (00:56→19:45)
[2019-02-03] MEDS: GLUCOPHAGE PO SCH ×2 (08:16→17:40)
--- NOTE | 2019-02-03 09:12 | Progress Note ---
Assessment and Plan A: /postop day 2 S/P repeat low transverse section with bilateral salpingectomies and lysis of adhesions. Diabetes. P: Continue current management. Encouraged patient to ambulate. Subjective - Subjective Date of service: 02/03/19 Principal diagnosis: /postop day 2 S/P repeat low transverse section and Interval history: /postop day 2 S/P repeat low transverse section, bilateral salpingectomies, and lysis of adhesions. Patient is doing well; her sugars have been controlled. Voiding without difficulty, ambulating well, and passing gas. Tolerating a regular diet. Patient denies headache, cough, shortness of breath, chest pain, abdominal pain, leg pain, heavy vaginal bleeding, or nausea/vomiting. Patient reports: appetite normal, voiding normally, pain well controlled, flatus, ambulating normally, no dizzy ambulation, no bowel movement, no nauseated [place]: doing well Objective - Vital Signs Latest vital signs: Vital Signs Temp Pulse Resp BP BP Pulse Ox 02/03/19 07:47 98.0 F 71 18 116/63 02/03/19 00:21 98.4 F 77 18 124/64 94 02/02/19 19:41 98.7 F 80 16 128/74 94 02/02/19 16:53 98.6 F 84 16 137/58 96 Intake and Output 02/02/19 02/03/19 02/03/19 23:59 07:59 15:59 Intake Total 480 840 Balance 480 840 Intake: Oral 480 Intake, Free Water 480 360 Other: Total, Intake Amount 480 # Voids Void 2 2 - Exam Cardiovascular: Present: Regular rate, Normal S1, Normal S2, No murmurs Lungs: Present: Clear to auscultation Abdomen: Present: normal appearance, soft, normal bowel sounds. Absent: distention, tenderness, guarding, rigidity Uterus: Present: normal, firm, fundal height below umbilicus. Absent: bogginess, tenderness Extremities: Present: normal. Absent: tenderness Incision: Present: normal, dry, intact, dressed - Labs Labs: Abnormal lab results 02/03/19 Range/Units 08:18 POC Glucose 118 H (70-105)
[2019-02-03] MEDS: PRENATAL VITAMIN PO SCH (10:09)
[2019-02-03] MEDS: FEOSOL PO SCH (10:09)
[2019-02-03] MEDS: NORCO 5/325 PO PRN ×2 (10:11→17:40)
[2019-02-04] MEDS: IBUPROFEN PO PRN ×2 (06:20→20:09)
[2019-02-04] MEDS: GLUCOPHAGE PO SCH ×2 (09:58→16:53)
[2019-02-04] MEDS: FEOSOL PO SCH (09:58)
[2019-02-04] MEDS: NORCO 5/325 PO PRN (09:58)
[2019-02-04] MEDS: PRENATAL VITAMIN PO SCH (09:58)
--- NOTE | 2019-02-04 10:32 | Progress Note ---
Assessment and Plan - Patient Problems (1) S/P repeat low transverse Current Visit: Yes Status: Acute Plan to address problem: POD 3 - stable Continue routine postop orders Discharge to home today Follow-up with PCP SORAIDA for diabetes management and [facility] in 5 days for incision check (2) S/P tubal ligation Current Visit: Yes Status: Acute (3) Pregestational diabetes mellitus, modified White class C Current Visit: Yes Status: Acute Plan to address problem: Continue home blood glucose monitoring 4x/d Decrease home insulin and metformin dosages by half Subjective - Subjective Date of service: 02/11/19 Principal diagnosis: POD #3; s/p Repeat LTCS with BTL Interval history: see H&P, Operative Report and PP/EVENT MARKETING SPECIALIST Progress Notes Patient with h/o pre-gestational diabetes controlled on Insulin and Metformin. Last four blood sugars 118, 144, 146, and 110 respectively. Was on Insulin 10U AM, 10U PM and Metformin 1000mg PO BID prior to delivery. Post-delivery no sliding scale insulin ordered. Patient has been on Metformin 1000mg PO BID. I consulted Dr. Cruz about discharge plans for this patient. She recommended that patient be informed to continue her home blood glucose regimen: check blood sugars 4x/d, decrease her medication dosages by half and f/u with [facility] or her PCP SORAIDA. Patient voiced understanding and agreed with POC. Patient reports: appetite normal, voiding normally, pain well controlled, flatus, ambulating normally, no dizzy ambulation, no bowel movement [place]: doing well Objective - Vital Signs Latest vital signs: Vital Signs Temp Pulse Resp BP BP Pulse Ox 02/04/19 07:14 97.9 F 67 18 121/68 02/03/19 23:10 98.5 F 71 20 113/66 96 02/03/19 17:40 18 02/03/19 17:31 98.8 F 79 18 140/77 Intake and Output 02/03/19 02/04/19 02/04/19 23:59 07:59 15:59 Intake Total 720 480 Output Total 600 Balance 120 480 Intake: Oral 720 480 Output: Urine 600 Void 600 Other: Total, Intake Amount 240 480 Total, Output Amount 600 # Voids Void 1 - Exam Cardiovascular: Present: Regular rate Lungs: Present: Clear to auscultation Abdomen: Present: normal appearance, soft Vulva: both: normal Uterus: Present: normal, firm, fundal height at umbilicus Extremities: Present: normal Incision: Present: normal, dry, intact, other (steri strips in place) Comments: scant lochia - Labs Labs: Abnormal lab results 02/03/19 02/04/19 02/04/19 Range/Units 17:47 00:17 06:50 POC Glucose 144 H 146 H 110 H (70-105)
--- NOTE | 2019-02-04 10:48 | Discharge Summary ---
Providers - Providers Date of Admission: 02/01/19 08:57 Date of discharge: 02/04/19 Attending physician: ALEX ALAS MD 02/01/19 17:17 Consult to Dietitian/Nutrition [CONS] Routine Physician Instructions: INSTRUCT CLIENT ON CALORIE NEED AFTER DELIVERY Reason For Exam: Reason for Consult: Diet education Primary care physician: ALEX ALAS MD Hospitalization Reason for admission: section, IUP at term Delivery: Procedure: bilateral tubal ligation, repeat low transverse Episiotomy: none Laceration: none Incision: normal, dry, intact, other (steri strips in place) Other procedures: none complications: none Discharge diagnosis: IUP at term delivered [place] baby: male Hospital course: Uncomplicated Condition at discharge: Stable - Discharge Diagnoses (1) S/P repeat low transverse Status: Acute (2) S/P tubal ligation Status: Acute (3) Pregestational diabetes mellitus, modified White class C Status: Acute Comment: Encouraged ADA diet Continue checking blood sugars 4x/d Decrease home insulin dose and Metformin dose by half Follow up with [facility] or PCP as soon as possible Plan - Discharge Medications Prescriptions: Ibuprofen [Motrin 800 MG tab] 800 mg PO Q6H PRN #30 tablet PRN Reason: Pain, Mild (1-3) HYDROcodone/APAP 5-325 [[place] 5/325] 1 - 2 each PO Q4HR PRN #30 tablet PRN Reason: Pain - Provider Discharge Summary Activity: routine, no sex for 6 weeks, no heavy lifting 4 weeks, no strenuous exercise Diet: routine Instructions: routine Additional instructions: [] Smoking cessation referral if applicable(refer to patient education folder for contact #) [] Refer to [facility] Booklet Call your doctor immediately for: * Fever > 100.5 * Heavy vaginal bleeding ( >1 pad per hour) * Severe persistent headache * Shortness of breath * Reddened, hot, painful area to leg or breast * Drainage or odor from incision. * Keep incision clean and dry at all times and follow doctor's instructions regarding bathing/showering - Follow up plan Follow up: ALEX ALAS MD [Primary Care Provider] - 02/08/19 (Follow-up with [facility]CP [facility] for diabetes management and [facility] in 5 days for incision check)
[2019-02-04] MEDS ORDERED: D50W (25GM) Syringe IV PRN (13:13)
[2019-02-04] MEDS: HumuLIN R SUB-Q SCH (14:14)
[2019-02-05] MEDS: NORCO 5/325 PO PRN (00:13)
[2019-02-05] MEDS: IBUPROFEN PO PRN ×2 (05:53→12:47)
[2019-02-05] MEDS: GLUCOPHAGE PO SCH ×2 (08:19→17:17)
[2019-02-05] MEDS: HumuLIN R SUB-Q SCH (10:20)
[2019-02-05] MEDS: FEOSOL PO SCH (10:24)
[2019-02-05] MEDS: PRENATAL VITAMIN PO SCH (10:24)
--- NOTE | 2019-02-05 17:01 | Event Note ---
Date: 02/05/19 Patient was still here despite discharge orders. Blood sugars decent. Consult sought from hospitalist re concise instruction for home management of diabetes.
--- NOTE | 2019-02-05 17:05 | Discharge Summary ---
Providers - Providers Date of Admission: 02/01/19 08:57 Date of discharge: 02/05/19 Attending physician: ALEX ALAS MD 02/01/19 17:17 Consult to Dietitian/Nutrition [CONS] Routine Physician Instructions: INSTRUCT CLIENT ON CALORIE NEED AFTER DELIVERY Reason For Exam: Reason for Consult: Diet education 02/05/19 16:55 Consult to Physician [CONS] Urgent Reason For Exam: diabetes Consulting Provider: LAURA JORGENSEN Physician Instructions: Comment: Provide insulin orders regimen, including upon d/c Primary care physician: ALEX ALAS MD Hospitalization Reason for admission: section Procedure: repeat low transverse Other procedures: tubal ligation complications: none Discharge diagnosis: other ( delivery with bilateral salpingectomy) Condition at discharge: Good Disposition: DC-01 TO HOME OR SELFCARE - Discharge Diagnoses (1) Previous delivery affecting , antepartum Status: Acute (2) Term Status: Acute (3) Type 2 diabetes mellitus affecting in second trimester, antepartum Status: Acute (4) Request for sterilization Status: Acute Plan - Discharge Medications Prescriptions: Ibuprofen [Motrin 800 MG tab] 800 mg PO Q6H PRN #30 tablet PRN Reason: Pain, Mild (1-3) HYDROcodone/APAP 5-325 [[place] 5/325] 1 - 2 each PO Q4HR PRN #30 tablet PRN Reason: Pain - Provider Discharge Summary Activity: routine, no sex for 6 weeks, no heavy lifting 4 weeks, no strenuous exercise Diet: other (as per hospitalist) Instructions: other (Hospitalist requested to provide concrete instructions re management of diabetes upon discharge from the hospital.) Additional instructions: [] Smoking cessation referral if applicable(refer to patient education folder for contact #) [] Refer to [facility] Booklet Call your doctor immediately for: * Fever > 100.5 * Heavy vaginal bleeding ( >1 pad per hour) * Severe persistent headache * Shortness of breath * Reddened, hot, painful area to leg or breast * Drainage or odor from incision. * Keep incision clean and dry at all times and follow doctor's instructions regarding bathing/showering - Follow up plan Follow up: ALEX ALAS MD [Primary Care Provider] - 02/08/19 (Follow-up with PCP SORAIDA for diabetes management and [facility] in 5 days for incision check) Forms: C Discharge Summary, Discharge Signature Page
--- NOTE | 2019-02-05 17:46 | Consultation ---
History of Present Illness - Reason for Consult Consult date: 02/05/19 Diabetes Requesting physician: ALEX ALAS - History of Present Illness 38 YO Female with DM, Obesity POD #4 S/P . Consult placed for Diabetes. Pt seen and evaluated in her room. Pt denies fever, chills, CP, Palpitations, NVD, Trauma, BRBPR, Productive Cough, Skin Rash, Dizziness, Syncope or recent ill contacts. Pt denies any complaints at this time. No reported nursing events. Past History Past Medical History: diabetes Past Surgical History: Social history: single Family history: diabetes, hypertension Medications and Allergies Allergies Allergy/AdvReac Type Severity Reaction Status Date / Time No Known Allergies Allergy Verified 02/01/19 09:23 Home Medications Medication Instructions Recorded Confirmed Last Taken Type Ibuprofen [Motrin 600 MG tab] 600 mg PO Q6H PRN #30 tablet 10/03/13 02/04/19 Unknown Rx oxyCODONE /ACETAMINOPHEN [Percocet 2 tab PO Q4H PRN #30 tablet 10/03/13 02/04/19 Unknown Rx 5/325 mg] Sitagliptin Phos/Metformin HCl 1 tab PO BID #60 tablet 10/04/13 02/04/19 Unknown Rx [Janumet 50-1,000 mg] HYDROcodone/APAP 5-325 [[place] 1 - 2 each PO Q4HR PRN #30 tablet 02/01/19 Unknown Rx 5/325] Ibuprofen [Motrin 800 MG tab] 800 mg PO Q6H PRN #30 tablet 02/04/19 Unknown Rx Active Meds: Active Medications Acetaminophen (Tylenol) 650 mg PO Q4H PRN PRN Reason: Fever >100.5/DANIELLE Acetaminophen/Hydrocodone Bitart ([place] 5/325) 1 each PO Q6H PRN PRN Reason: Pain, Moderate (4-6) Last Admin: 02/05/19 00:13 Dose: 1 each Documented by: Dextrose (D50w (25gm) Syringe) 50 ml IV PRN PRN PRN Reason: Hypoglycemia Ferrous Sulfate (Feosol) 325 mg PO QDAY DEENA Last Admin: 02/05/19 10:24 Dose: 325 mg Documented by: Oxytocin/Sodium Chloride (Pitocin/Ns 20 Unit/1000ml Drip) 20 units in 1,000 mls @ 250 mls/hr IV [facility] Ibuprofen (Ibuprofen) 800 mg PO Q6H PRN PRN Reason: Pain, Mild (1-3) Last Admin: 02/05/19 12:47 Dose: 800 mg Documented by: Insulin Human NPH (Humulin N) 15 unit SUB-Q BIDDIAB [facility] Last Admin: 02/05/19 09:02 Dose: 15 unit Documented by: Insulin Human Regular (Humulin R) 12 units SUB-Q BID [facility] Last Admin: 02/05/19 10:20 Dose: Not Given Documented by: Ketorolac Tromethamine (Toradol) 30 mg IV Q6H PRN PRN Reason: Pain, Moderate (4-6) Stop: 02/06/19 13:50 Last Admin: 02/02/19 06:58 Dose: 30 mg Documented by: Metformin HCl (Glucophage) 1,000 mg PO BIDDIAB [facility] Last Admin: 02/05/19 17:17 Dose: 1,000 mg Documented by: Morphine Sulfate (Morphine) 4 mg IV Q4H PRN PRN Reason: Pain , Severe (7-10) Last Admin: 02/01/19 17:37 Dose: 4 mg Documented by: Multi-Ingredient Ointment (Lansinoh) 1 applic TP PRN PRN PRN Reason: dryness/cracking Multivitamins/Iron/Calcium ( Vitamin) 1 each PO QDAY [facility] Last Admin: 02/05/19 10:24 Dose: 1 each Documented by: Naloxone HCl (Narcan 0.4 Mg/1 Ml) 0.1 mg IV Q2MIN PRN PRN Reason: Res Rate </= 8 or 02 SAT < 92% Ondansetron HCl (Zofran) 4 mg IV Q8H PRN PRN Reason: Nausea And Vomiting Witch Jackelyn/Glycerin (Tucks Pad) 1 each TP PRN PRN PRN Reason: Hemorrhoids/cleansing/soothing Review of Systems Constitutional: no weight loss, no weight gain, no fever, no chills Ears, nose, mouth and throat: no ear pain, no ear discharge, no tinnitis, no decreased hearing, no nose pain, no sinus pressure Breasts: no change in shape, no swelling, no mass Cardiovascular: no chest pain, no orthopnea, no palpitations, no rapid/irregular heart beat, no edema Respiratory: no cough, no excessive sputum, no hemoptysis, no shortness of breath, no dyspnea on exertion Gastrointestinal: no nausea, no vomiting, no diarrhea, no change in bowel habits, no hematemesis Genitourinary Female: no pelvic pain, no flank pain, no stress incontinence, no post void dribbling, no urge incontinence Rectal: no pain, no incontinence, no bleeding Musculoskeletal: no neck stiffness, no neck pain, no arm numbness/tingling, no shooting leg pain Integumentary: no rash, no pruritis, no redness, no sores, no wounds, no jaundice Neurological: no transient paralysis, no paralysis, no weakness, no numbness, no tingling, no seizures, no tremors Psychiatric: no anxiety, no memory loss, no change in sleep habits, no insomnia, no hypersomnia, no change in appetite, no change in libido, no disorientation Endocrine: no cold intolerance, no heat intolerance, no polyphagia, no excessive thirst, no polydipsia, no polyuria, no nocturia, no excessive sweating Hematologic/Lymphatic: no easy bruising, no easy bleeding, no lymphadenopathy, no lymphedema Allergic/Immunologic: no urticaria, no wheezing, no persistent infections, no anaphylaxis, no angioedema Exam - Constitutional Vitals: Temp Pulse Resp BP Pulse Ox 98.1 F 75 16 142/64 96 02/05/19 16:30 02/05/19 16:30 02/05/19 16:30 02/05/19 16:30 02/05/19 07:59 General appearance: Present: no acute distress, well-nourished - EENT Eyes: Present: PERRL ENT: hearing intact, clear oral mucosa - Neck Neck: Present: supple, normal ROM - Respiratory Respiratory effort: normal Respiratory: bilateral: CTA - Cardiovascular Heart Sounds: Present: S1 & S2. Absent: rub, click - Extremities Extremities: pulses symmetrical, No edema Peripheral Pulses: within normal limits - Abdominal General gastrointestinal: Present: soft, non-tender, non-distended, normal bowel sounds Female genitourinary: Present: normal - Integumentary Integumentary: Present: clear, warm, dry - Musculoskeletal Musculoskeletal: gait normal, strength equal bilaterally - Psychiatric Psychiatric: appropriate mood/affect, intact judgment & insight - Neurologic Neurologic: CNII-XII intact, moves all extremities Results - Labs CBC & Chem 7: 02/02/19 01:22 02/04/19 13:14 Labs: Abnormal lab results 02/05/19 Range/Units 00:17 POC Glucose 115 H (70-105) Assessment and Plan - Patient Problems (1) Diabetes Current Visit: Yes Status: Acute Qualifiers: Diabetes mellitus type: type 1 Plan to address problem: ADA diet, Insulin, Accu check, hypoglycemia protocol, Resume home regimen at time of discharge
[2019-02-05 21:44] VITALS: BP 146/74
== END 2019-02-05 22:00 | disposition home or self-care (01) | DRG 785 ==
LOC: APU 08:57 → OB 16:43
PROVIDERS: ADMIT Obstetrics & Gynecology; ATTEND Obstetrics & Gynecology
PROC: 10D00Z1 Extraction of Products of Conception, Low, Open Approach (ICD-10-PCS; principal; 2019-02-01)
PROC: 0UB70ZZ Excision of Bilateral Fallopian Tubes, Open Approach (ICD-10-PCS; 2019-02-01)
PROC: 3E0234Z Introduction of Serum, Toxoid and Vaccine into Muscle, Percutaneous Approach (ICD-10-PCS; 2019-02-02)
DX: O24.429 Gestational diabetes mellitus in childbirth, unspecified control (principal); O34.211 Maternal care for low transverse scar from previous cesarean delivery; Z3A.38 38 weeks gestation of pregnancy; Z37.0 Single live birth; Z82.49 Family history of ischemic heart disease and other diseases of the circulatory system; Z83.3 Family history of diabetes mellitus; Z79.899 Other long term (current) drug therapy; Z79.4 Long term (current) use of insulin; Z23 Encounter for immunization
CPT/HCPCS: 36415; 82947; 82962; 85014; 85018; 85025; 86850; 86900; 86901; 88302; 90715; G0378; J0690; J1170; J1200; J1815; J1885; J2270; J2370; J2405; J2590; J2765; J3490; J7120

== ENCOUNTER 2019-02-11 14:03 | Inpatient (IN) | payer SELFPAY ==
--- NOTE | 2019-02-11 15:05 | Emergency Department Report ---
Blank Doc - Documentation Documentation: 38-year-old female that was sent by OB for pre eclampsia. Stated has headache. was done last week. BP in OB was 180/104 and 170/120. This initial assessment/diagnostic orders/clinical plan/treatment(s) is/are subject to change based on patient's health status, clinical progression and re- assessment by fellow clinical providers in the ED. Further treatment and workup at subsequent clinical providers discretion. Patient/guardians urged not to elope from the ED as their condition may be serious if not clinically assessed and managed. Initial orders include: 1- Patient sent to MAIN ED for further evaluation and treatment 2- labs 3- UA 4- RN notified to have patient be brought back carlos.
[2019-02-11 17:06] LABS: Alanine Aminotransferase 24 units/L (7-56); Albumin 3.7 g/dL (3.9-5); BUN/Creatinine Ratio 18; Basophils # (Auto) 0.1 K/mm3 (0.0-0.1); Blood Urea Nitrogen 9 mg/dL (7-17); Eosinophils # (Auto) 0.4 K/mm3 (0.0-0.4); Eosinophils % (Auto) 5.8 % (0.0-4.3); Hematocrit 39.7 % (30.3-42.9); Hemoglobin 13.6 gm/dl (10.1-14.3); Hemolysis Index 9; Lymphocytes # (Auto) 2.3 K/mm3 (1.2-5.4); Lymphocytes % (Auto) 34.9 % (13.4-35.0); Mean Corpuscular HGB Conc 34 % (30-34); Mean Corpuscular Volume 94 fl (79-97); Monocytes # (Auto) 0.7 K/mm3 (0.0-0.8); Monocytes % (Auto) 10.4 % (0.0-7.3); Platelet Count 245 K/mm3 (140-440); Red Blood Count 4.23 M/mm3 (3.65-5.03)
[2019-02-11] MEDS ORDERED: MAGNESIUM SULFATE 2 GM in NACL 0.9% 50 ML IV ONE (18:06)
[2019-02-11] MEDS ORDERED: LABETALOL IV ONE ×2 (18:06→18:29)
[2019-02-11] MEDS ORDERED: MAGNESIUM SULFATE 2GM/50ML 2 GM/50 ML BAG IV ONE (18:06)
[2019-02-11] MEDS ORDERED: TYLENOL PO ONE (18:06)
--- NOTE | 2019-02-11 18:08 | Emergency Department Report ---
ED General Adult HPI - General Chief complaint: High BP Stated complaint: HBP Time Seen by Provider: 02/11/19 15:02 Source: patient, RN notes reviewed, old records reviewed Mode of arrival: Ambulatory Limitations: No Limitations - History of Present Illness Initial comments: This is a 38-year-old female. This patient is not known to this provider previ ously. Reportedly follows with [facility]. Past medical history includes recent , term , type II diabetes, request for sterilization, and history of hypertension during her previous , but not the current . The patient is sent to the emergency room by her charter representative for evaluation of hypertension. The patient states that she's not had hypertension during this . She denies right upper quadrant pain. She denies leg swelling. She denies change in urinary habits. She endorses a mild headache but no blurry vision. Symptoms are constant, do not radiate anywhere, and do not have exacerbating or relieving factors. She denies additional complaints at this time. -: Gradual Location: head Severity scale (0 -10): 0 Quality: other Consistency: other Improves with: other Worsens with: other - Related Data Home Medications Medication Instructions Recorded Confirmed Last Taken metFORMIN [Glucophage] 500 mg PO BID 02/11/19 02/11/19 Unknown Previous Rx's Medication Instructions Recorded Last Taken Type HYDROcodone/APAP 5-325 [[place] 1 - 2 each PO Q4HR PRN #30 tablet 02/01/19 Unknown Rx 5/325] Ibuprofen [Motrin 800 MG tab] 800 mg PO Q6H PRN #30 tablet 02/04/19 Unknown Rx Allergies Allergy/AdvReac Type Severity Reaction Status Date / Time No Known Allergies Allergy Verified 02/01/19 09:23 ED Review of Systems ROS: Stated complaint: HBP Other details as noted in HPI Constitutional: denies: fever Eyes: denies: vision change ENT: denies: epistaxis Respiratory: denies: wheezing Cardiovascular: denies: syncope Gastrointestinal: denies: abdominal pain, nausea, vomiting Genitourinary: denies: dysuria Musculoskeletal: denies: myalgia Neurological: headache. denies: weakness, numbness, paresthesias, confusion Hematological/Lymphatic: denies: easy bleeding ED Past Medical Hx - Past Medical History Previous Medical History?: Yes Hx Hypertension: No Hx Congestive Heart Failure: No Hx Diabetes: Yes Hx Deep Vein Thrombosis: No Hx Renal Disease: No Hx Sickle Cell Disease: No Hx Seizures: No Hx Asthma: No Hx COPD: No Hx HIV: No - Surgical History Past Surgical History?: Yes Additional Surgical History: C section - Social History Smoking Status: Never Smoker Substance Use Type: Alcohol - Medications Home Medications: Home Medications Medication Instructions Recorded Confirmed Last Taken Type HYDROcodone/APAP 5-325 [[place] 1 - 2 each PO Q4HR PRN #30 tablet 02/01/19 02/11/19 Unknown Rx 5/325] Ibuprofen [Motrin 800 MG tab] 800 mg PO Q6H PRN #30 tablet 02/04/19 02/11/19 Unknown Rx metFORMIN [Glucophage] 500 mg PO BID 02/11/19 02/11/19 Unknown History ED Physical Exam - General Limitations: No Limitations General appearance: alert, anxious - Head Head exam: Present: atraumatic, normocephalic - Eye Eye exam: Present: normal appearance (i visual acuity intact to color perception at a close cyst), PERRL, EOMI, other (visual acuity intact to finger counting bilaterally.). Absent: nystagmus - ENT ENT exam: Present: normal exam, normal orophraynx, mucous membranes moist, normal external ear exam - Neck Neck exam: Present: normal inspection, full ROM. Absent: tenderness, meningismu s - Respiratory Respiratory exam: Present: normal lung sounds bilaterally. Absent: respiratory distress - Cardiovascular Cardiovascular Exam: Present: regular rate, normal rhythm, normal heart sounds. Absent: bradycardia, tachycardia, irregular rhythm, systolic murmur, diastolic murmur, rubs, gallop - GI/Abdominal GI/Abdominal exam: Present: soft. Absent: distended, tenderness, guarding, rebound, rigid, pulsatile mass - Extremities Exam Extremities exam: Present: normal inspection, full ROM, other (2+ pulses noted in the bilateral upper, lower extremities. There is no long bone tenderness. Musculoskeletal compartments are soft. The pelvis is stable.). Absent: pedal edema, calf tenderness - Back Exam Back exam: Present: normal inspection, full ROM. Absent: tenderness, CVA tenderness (R), CVA tenderness (L), paraspinal tenderness, vertebral tenderness - Neurological Exam Neurological exam: Present: alert, oriented X3, other (there is no facial droop. The tongue is midline. Extraocular movements are intact bilaterally. Patient speaking in full complete sentences. Shoulder shrug is intact bilaterally. Hearing is grossly intact bilaterally. Visual acuity intact to finger counting and color perception at a close distance. 5/5 strength 4 extremities. Sensation intact to light touch in 4 extremities.). Absent: motor sensory deficit - Psychiatric Psychiatric exam: Present: anxious - Skin Skin exam: Present: warm, dry, intact, normal color. Absent: rash ED Course Vital Signs 02/11/19 02/11/19 02/11/19 14:06 17:29 17:30 Temperature 98.4 F Pulse Rate 77 61 Respiratory 18 18 Rate Blood Pressure 136/75 164/90 Blood Pressure 164/90 [Left] O2 Sat by Pulse 96 98 97 Oximetry 02/11/19 02/11/19 02/11/19 18:00 18:23 18:39 Temperature Pulse Rate 69 63 Respiratory 16 20 Rate Blood Pressure 172/79 187/73 182/85 Blood Pressure [Left] O2 Sat by Pulse 96 98 Oximetry 02/11/19 02/11/19 02/11/19 18:41 19:00 19:05 Temperature 98.2 F Pulse Rate 63 63 62 Respiratory 16 17 16 Rate Blood Pressure 165/84 Blood Pressure 192/72 170/74 [Left] O2 Sat by Pulse 96 94 95 Oximetry 02/11/19 02/11/19 02/11/19 19:26 19:30 19:50 Temperature 98.2 F Pulse Rate 68 72 81 Respiratory 14 14 Rate Blood Pressure 170/74 165/84 Blood Pressure 135/68 [Left] O2 Sat by Pulse 97 98 Oximetry 02/11/19 02/11/19 20:00 20:30 Temperature Pulse Rate 80 71 Respiratory 14 15 Rate Blood Pressure 139/65 139/65 Blood Pressure [Left] O2 Sat by Pulse 96 96 Oximetry - Reevaluation(s) Reevaluation #1: 02/11/19 18:[address] scan of the brain is negative for acute disease. Personally discussed case with Dr. Cruz who graciously accepts the patient to her service. sHe requests critical care consultation. Reevaluation #2: 02/11/19 23:24 Blood pressure improved, now in the 130s, cardene was discontinued by recommendation from receiving charter representative. The patient was not initiated on nicardipine. At this point time, does not require ballistics expert consultation. Down triaged to labor and delivery. - Consultations Consultation #1: 02/11/19 19:11 d/w Dr Bozena Galloway who will follow ED Medical Decision Making - Lab Data Result diagrams: 02/11/19 16:09 02/11/19 16:09 Vital Signs 02/11/19 02/11/19 02/11/19 14:06 17:29 18:23 Temperature 98.4 F Pulse Rate 77 61 69 Respiratory 18 18 16 Rate Blood Pressure 136/75 187/73 Blood Pressure 164/90 [Left] O2 Sat by Pulse 96 98 Oximetry Lab Results 02/11/19 02/11/19 02/11/19 Range/Units 16:09 16:09 17:25 WBC 6.7 (4.5-11.0) K/mm3 RBC 4.23 (3.65-5.03) M/mm3 Hgb 13.6 (10.1-14.3) gm/dl Hct 39.7 (30.3-42.9) % MCV 94 (79-97) fl MCH 32 (28-32) pg MCHC 34 (30-34) % RDW 14.0 (13.2-15.2) % Plt Count 245 (140-440) K/mm3 Lymph % (Auto) 34.9 (13.4-35.0) % [place] % (Auto) 10.4 H (0.0-7.3) % Eos % (Auto) 5.8 H (0.0-4.3) % Baso % (Auto) 1.0 (0.0-1.8) % Lymph # 2.3 (1.2-5.4) K/mm3 [place] # 0.7 (0.0-0.8) K/mm3 Eos # 0.4 (0.0-0.4) K/mm3 Baso # 0.1 (0.0-0.1) K/mm3 Seg Neutrophils % 47.9 (40.0-70.0) % Seg Neutrophils # 3.2 (1.8-7.7) K/mm3 Sodium 141 (137-145) mmol/L Potassium 3.8 (3.6-5.0) mmol/L Chloride 102.6 (98-107) mmol/L Carbon Dioxide 26 (22-30) mmol/L Anion Gap 16 mmol/L BUN 9 (7-17) mg/dL Creatinine 0.5 L (0.7-1.2) mg/dL Estimated GFR > 60 ml/min BUN/Creatinine Ratio 18 % Glucose 173 H (65-100) mg/dL Calcium 10.0 (8.4-10.2) mg/dL Total Bilirubin 0.40 (0.1-1.2) mg/dL AST 24 (5-40) units/L ALT 24 (7-56) units/L Alkaline Phosphatase 86 (35-129) units/L Total Protein 6.9 (6.3-8.2) g/dL Albumin 3.7 L (3.9-5) g/dL Albumin/Globulin Ratio 1.2 % Urine Color Straw (Yellow) Urine Turbidity Clear (Clear) Urine pH 7.0 (5.0-7.0) Ur Specific [place] 1.004 (1.003-1.030) Urine Protein <15 mg/dl (Negative) mg/dL Urine Glucose (UA) Neg (Negative) mg/dL Urine Ketones Neg (Negative) mg/dL Urine Blood Mod (Negative) Urine Nitrite Neg (Negative) Urine Bilirubin Neg (Negative) Urine Urobilinogen < 2.0 (<2.0) mg/dL Ur Leukocyte Esterase Lg (Negative) Urine WBC (Auto) 27.0 H (0.0-6.0) /HPF Urine RBC (Auto) 6.0 (0.0-6.0) /HPF U Epithel Cells (Auto) 1.0 (0-13.0) /HPF Urine Bacteria (Auto) 1+ (Negative) /HPF Urine Mucus Few /HPF - Radiology Data Radiology results: pending, image reviewed interpreted by me: Noncontrast CT scan of the brain, interpreted by myself, negative for acute di sease - Medical Decision Making Differential diagnosis, including not limited to: hypertension, preeclampsia Assessment and plan: 38-year-old female with hypertension and headache. She is otherwise afebrile with reassuring vital signs. Liver function tests unremarkable, do not appreciate significant lower extremity edema, urinalysis does not demonstrate significant protein. However, she indicates that the headache is no. She appears quite comfortable at this time. Given constellation of headache and hypertension, status, concern for presentation of preeclampsia. We have recommended initiation of emergent antihypertensive therapy, and magnesium sulfate infusion. Patient given 10 mg of labetalol as well, currently, blood pressure 190's, with a heart rate of 63. Not a suitable candidate for labetalol at this time. We will initiate antihypertensive therapy with Cardene Discussed with nursing fabricator assembler metal products, who indicates that Dr. Cruz will be the accepting physician. We will discuss with Dr. Cruz need for triage to higher level of care given initiation of Cardizem therapy. Critical Care Time: Yes Critical care time in (mins) excluding proc time.: 35 Critical care attestation.: If time is entered above; I have spent that time in minutes in the direct care of this critically ill patient, excluding procedure time. ED Disposition Clinical Impression: hypertension, headache Disposition: OP ADMIT IP TO THIS HOSP Is pt being admited?: Yes Condition: Serious
[2019-02-11 18:19] LABS: Bacteria,Urine 1+ /HPF (Negative); Bilirubin,Urine NEG (Negative); Blood,Urine MOD (Negative); Color,Urine Straw (Yellow); Mucus,Urine FEW /HPF; Protein,Urine <15 mg/dL mg/dL (Negative); Urobilinogen,Urine < 2.0 mg/dL (<2.0)
--- NOTE | 2019-02-11 18:55 | Cat Scan Report ---
CT head/brain wo con INDICATION: Headache and hypertension. Recent .. TECHNIQUE: Routine CT head without contrast. All CT scans at this location are performed using CT dos e reduction for ALARA by means of automated exposure control. COMPARISON: None. FINDINGS: BRAIN / INTRACRANIAL CONTENTS: No acute hemorrhage, mass effect, midline shift, or hydrocephalus. No appreciable acute large territorial or lacunar infarct. No chronic infarct or focal atrophy. Normal b rain volume and ventricular/sulcal size for age. ORBITS: No significant abnormality of visualized orbits. SINUSES / MASTOIDS: No significant abnormality of visualized sinuses and mastoid air cells. ADDITIONAL FINDINGS: None. IMPRESSION: 1. No acute intracranial abnormality. Signer Name: Johny Chu MD Signed: 02/11/2019 6:50 PM Workstation Name: [id number]
[2019-02-11] MEDS ORDERED: CARDENE 50 MG in NACL 0.9% 250ML 230 ML IV SCH (19:00)
[2019-02-11] MEDS ORDERED: MAGNESIUM SULFATE 40GM/1000ML 40 GM/1,000 ML BAG IV ONE (19:06)
[2019-02-11] MEDS ORDERED: MAGNESIUM SULFATE 4GM/100ML 4 GM/100 ML BAG IV ONE (19:10)
[2019-02-11] MEDS ORDERED: APRESOLINE IV ONE (19:11)
[2019-02-11] MEDS ORDERED: APRESOLINE ONE (19:26)
[2019-02-11] MEDS ORDERED: LACTATED RINGERS 1,000 ML ONE (21:45)
[2019-02-11] MEDS: LACTATED RINGERS 1,000 ML IV SCH (22:00)
[2019-02-11] MEDS: MAGNESIUM SULFATE 40GM/1000ML 40 GM/1,000 ML BAG IV SCH (22:00)
--- NOTE | 2019-02-11 22:20 | Progress Note ---
Subjective - Subjective Date of service: 02/11/19 Interval history: exam as per nursing staff cervical exam 7cm/100%/-1 FHT 150 baseline, moderate variability +ve accelerations [place]:Q1-2 minutes Continue current management tracing category 1 CFM Maternal/ well being reassuring overall. Leonel Cruz MD Objective - Vital Signs Vital Signs: Vital Signs - 12hr 02/11/19 02/11/19 02/11/19 14:06 17:29 17:30 Temperature 98.4 F Pulse Rate 77 61 Respiratory 18 18 Rate Blood Pressure 136/75 164/90 Blood Pressure 164/90 [Left] O2 Sat by Pulse 96 98 97 Oximetry 02/11/19 02/11/19 02/11/19 18:00 18:23 18:39 Temperature Pulse Rate 69 63 Respiratory 16 20 Rate Blood Pressure 172/79 187/73 182/85 Blood Pressure [Left] O2 Sat by Pulse 96 98 Oximetry 02/11/19 02/11/19 02/11/19 18:41 19:00 19:05 Temperature 98.2 F Pulse Rate 63 63 62 Respiratory 16 17 16 Rate Blood Pressure 165/84 Blood Pressure 192/72 170/74 [Left] O2 Sat by Pulse 96 94 95 Oximetry 02/11/19 02/11/19 02/11/19 19:26 19:30 19:50 Temperature 98.2 F Pulse Rate 68 72 81 Respiratory 14 14 Rate Blood Pressure 170/74 165/84 Blood Pressure 135/68 [Left] O2 Sat by Pulse 97 98 Oximetry 02/11/19 02/11/19 02/11/19 20:00 20:30 21:29 Temperature Pulse Rate 80 71 72 Respiratory 14 15 Rate Blood Pressure 139/65 139/65 142/73 Blood Pressure [Left] O2 Sat by Pulse 96 96 Oximetry - Labs Labs: Abnormal Labs 02/11/19 02/11/19 02/11/19 16:09 16:09 17:25 [place] % (Auto) 10.4 H Eos % (Auto) 5.8 H Creatinine 0.5 L Glucose 173 H Albumin 3.7 L Urine WBC (Auto) 27.0 H Laboratory Results - last 24 hr 02/11/19 02/11/19 02/11/19 16:09 16:09 16:09 WBC 6.7 RBC 4.23 Hgb 13.6 Hct 39.7 MCV 94 MCH 32 MCHC 34 RDW 14.0 Plt Count 245 Lymph % (Auto) 34.9 [place] % (Auto) 10.4 H Eos % (Auto) 5.8 H Baso % (Auto) 1.0 Lymph # 2.3 [place] # 0.7 Eos # 0.4 Baso # 0.1 Seg Neutrophils % 47.9 Seg Neutrophils # 3.2 Sodium 141 Potassium 3.8 Chloride 102.6 Carbon Dioxide 26 Anion Gap 16 BUN 9 Creatinine 0.5 L Estimated GFR > 60 BUN/Creatinine Ratio 18 Glucose 173 H Calcium 10.0 Magnesium Total Bilirubin 0.40 AST 24 ALT 24 Alkaline Phosphatase 86 Total Creatine Kinase 96 Total Protein 6.9 Albumin 3.7 L Albumin/Globulin Ratio 1.2 Urine Color Urine Turbidity Urine pH Ur Specific [place] Urine Protein Urine Glucose (UA) Urine Ketones Urine Blood Urine Nitrite Urine Bilirubin Urine Urobilinogen Ur Leukocyte Esterase Urine WBC (Auto) Urine RBC (Auto) U Epithel Cells (Auto) Urine Bacteria (Auto) Urine Mucus 02/11/19 02/11/19 17:25 18:32 WBC RBC Hgb Hct MCV MCH MCHC RDW Plt Count Lymph % (Auto) [place] % (Auto) Eos % (Auto) Baso % (Auto) Lymph # [place] # Eos # Baso # Seg Neutrophils % Seg Neutrophils # Sodium Potassium Chloride Carbon Dioxide Anion Gap BUN Creatinine Estimated GFR BUN/Creatinine Ratio Glucose Calcium Magnesium 2.10 Total Bilirubin AST ALT Alkaline Phosphatase Total Creatine Kinase Total Protein Albumin Albumin/Globulin Ratio Urine Color Straw Urine Turbidity Clear Urine pH 7.0 Ur Specific [place] 1.004 Urine Protein <15 mg/dl Urine Glucose (UA) Neg Urine Ketones Neg Urine Blood Mod Urine Nitrite Neg Urine Bilirubin Neg Urine Urobilinogen < 2.0 Ur Leukocyte Esterase Lg Urine WBC (Auto) 27.0 H Urine RBC (Auto) 6.0 U Epithel Cells (Auto) 1.0 Urine Bacteria (Auto) 1+ Urine Mucus Few
--- NOTE | 2019-02-11 22:23 | History and Physical Report ---
History of Present Illness Date of examination: 02/11/19 Date of admission: 02/11/19 18:56 Chief complaint: preeclampsia and CHTN History of present illness: PAteint admitted from ED for preeclamsia. She admits to [facility]. Denies blurry vision/vision changes , nausea or vomiting. was done last week. BP in office was 180/104 and 170/120. PIH with last wbut this was not complicated by PIH. She admits to Type 2 DM. Past History Past Medical History: diabetes Past Surgical History: section Family/Genetic History: none Social history: no significant social history - Obstetrical History : 5 Medications and Allergies Allergies Allergy/AdvReac Type Severity Reaction Status Date / Time No Known Allergies Allergy Verified 02/01/19 09:23 Home Medications Medication Instructions Recorded Confirmed Last Taken Type HYDROcodone/APAP 5-325 [[place] 1 - 2 each PO Q4HR PRN #30 tablet 02/01/19 02/11/19 Unknown Rx 5/325] Ibuprofen [Motrin 800 MG tab] 800 mg PO Q6H PRN #30 tablet 02/04/19 02/11/19 Unknown Rx metFORMIN [Glucophage] 500 mg PO BID 02/11/19 02/11/19 Unknown History Active Meds: Active Medications Magnesium Sulfate (Magnesium Sulfate 40gm/1000ml) 40 gm in 1,000 mls @ 25 mls/hr IV ONCE ONE Stop: 02/13/19 11:05 Last Admin: 02/11/19 20:19 Dose: 1 gm/hr, 25 mls/hr Documented by: Nicardipine HCl 50 mg/ Sodium (Chloride) 250 mls @ 25 mls/hr IV TITR DEENA; Protocol Lactated Ringer's (Lactated Ringers) 1,000 mls @ 75 mls/hr IV DIRECT DEENA Magnesium Sulfate (Magnesium Sulfate 40gm/1000ml) 40 gm in 1,000 mls @ 50 mls/hr IV DIRECT DEENA Review of Systems All systems: negative (headache) - Vital Signs Vital signs: Vital Signs Temp Pulse Resp BP Pulse Ox 98.4 F 77 18 136/75 96 02/11/19 14:06 02/11/19 14:06 02/11/19 14:06 02/11/19 14:06 02/11/19 14:06 Temp Pulse Resp BP Pulse Ox 98.2 F 72 15 142/73 96 02/11/19 19:50 02/11/19 21:29 02/11/19 20:30 02/11/19 21:29 02/11/19 20:30 - Physical Exam Cardiovascular: Regular rate Lungs: Positive: Clear to auscultation Abdomen: Positive: normal appearance Extremities: Positive: normal Deep Tendon Reflex Grade: Normal +2 Results Result Diagrams: 02/11/19 16:09 02/11/19 16:09 Abnormal lab results 02/11/19 02/11/19 02/11/19 Range/Units 16:09 16:09 17:25 [place] % (Auto) 10.4 H (0.0-7.3) % Eos % (Auto) 5.8 H (0.0-4.3) % Creatinine 0.5 L (0.7-1.2) mg/dL Glucose 173 H (65-100) mg/dL Albumin 3.7 L (3.9-5) g/dL Urine WBC (Auto) 27.0 H (0.0-6.0) /HPF All other labs normal. Assessment and Plan preeclampsia/CHTN P: MGSO4 as per protocol daily labs Labetalol PRN monitor closely Patient stable Leonel Cruz MD
[2019-02-12] MEDS: TYLENOL PO PRN ×3 (05:41→19:54)
[2019-02-12] MEDS: LACTATED RINGERS 1,000 ML IV SCH (10:35)
[2019-02-12] MEDS: MAGNESIUM SULFATE 40GM/1000ML 40 GM/1,000 ML BAG IV SCH (16:40)
--- NOTE | 2019-02-12 17:29 | Progress Note ---
Assessment and Plan - Patient Problems (1) Pre-eclampsia, Current Visit: Yes Status: Acute Plan to address problem: On MgSo4. I have added labetalol 200mg bid to plan. Response to labetalol will be observed for adequacy. Subjective - Subjective Date of service: 02/12/19 Principal diagnosis: preeclampsia Interval history: Admitted from ED for preeclamsia. Denied headahces today. Denies blurry vision/vision changes , nausea or vomiting. was done last week. BP in office was 180/104 and 170/120. BPs today included systolic high of 154mmHg, on no antihypertensives. HasType 2 DM. Patient reports: dizzy ambulation : doing well Objective - Vital Signs Latest vital signs: Vital Signs Temp Pulse Resp BP BP Pulse Ox 02/12/19 17:12 72 142/75 02/12/19 16:42 81 128/80 02/12/19 16:12 64 151/74 02/12/19 15:42 64 155/76 02/12/19 15:13 67 148/66 02/12/19 14:42 72 133/65 02/12/19 14:12 75 128/78 02/12/19 13:42 67 139/64 02/12/19 13:12 72 140/75 02/12/19 12:42 72 143/75 02/12/19 12:12 69 144/76 02/12/19 11:42 75 125/62 02/12/19 11:12 70 115/56 02/12/19 10:42 77 128/61 02/12/19 10:13 62 151/67 02/12/19 09:43 63 154/67 02/12/19 09:12 62 143/67 02/12/19 08:42 64 132/65 02/12/19 08:10 98.0 F 02/12/19 08:08 69 97 02/12/19 08:07 61 85 02/12/19 08:03 73 95 02/12/19 07:58 62 96 02/12/19 07:53 64 96 02/12/19 07:48 84 94 02/12/19 07:43 65 96 02/12/19 07:38 65 96 02/12/19 07:33 65 97 02/12/19 07:29 64 141/74 02/12/19 07:28 66 97 02/12/19 07:23 64 97 02/12/19 07:18 68 96 02/12/19 07:13 64 97 02/12/19 07:08 68 98 02/12/19 07:03 68 94 02/12/19 07:01 71 93 02/12/19 06:58 76 97 02/12/19 06:53 63 97 02/12/19 06:48 69 97 02/12/19 06:43 68 97 02/12/19 06:41 16 02/12/19 06:38 68 97 02/12/19 06:33 68 96 02/12/19 06:30 16 02/12/19 06:29 64 137/73 02/12/19 06:28 72 97 02/12/19 06:23 66 97 02/12/19 06:18 75 97 02/12/19 06:13 65 96 02/12/19 06:08 63 96 02/12/19 06:03 69 96 02/12/19 05:58 81 97 02/12/19 05:57 77 92 02/12/19 05:53 71 96 02/12/19 05:48 68 96 02/12/19 05:43 78 97 02/12/19 05:41 16 02/12/19 05:38 67 94 02/12/19 05:33 63 96 02/12/19 05:30 16 02/12/19 05:29 60 115/62 02/12/19 05:28 61 96 02/12/19 05:23 64 95 02/12/19 05:18 62 96 02/12/19 05:13 61 95 02/12/19 05:10 82 94 02/12/19 05:08 61 96 02/12/19 05:03 63 95 02/12/19 04:58 62 96 02/12/19 04:53 63 95 02/12/19 04:50 64 94 02/12/19 04:48 63 95 02/12/19 04:43 63 95 02/12/19 04:38 62 95 02/12/19 04:33 62 95 02/12/19 04:29 61 110/58 02/12/19 04:28 62 95 02/12/19 04:25 62 94 02/12/19 04:23 59 L 95 02/12/19 04:20 63 94 02/12/19 04:18 63 94 02/12/19 04:14 62 93 02/12/19 04:13 61 95 02/12/19 04:08 64 95 02/12/19 04:06 66 94 02/12/19 04:03 71 95 02/12/19 03:58 70 96 02/12/19 03:53 69 95 02/12/19 03:48 63 95 02/12/19 03:43 64 94 02/12/19 03:40 69 94 02/12/19 03:38 76 95 02/12/19 03:33 81 97 02/12/19 03:31 68 94 02/12/19 03:30 97.8 F 16 02/12/19 03:29 63 121/61 02/12/19 03:28 64 95 02/12/19 03:23 66 95 02/12/19 03:22 71 94 02/12/19 03:18 67 95 02/12/19 03:13 67 95 02/12/19 03:08 67 95 02/12/19 03:03 67 94 02/12/19 03:02 72 91 02/12/19 02:58 68 95 02/12/19 02:53 68 95 02/12/19 02:48 67 95 02/12/19 02:43 69 95 02/12/19 02:38 65 95 02/12/19 02:33 68 94 02/12/19 02:29 67 128/60 02/12/19 02:28 67 95 02/12/19 02:25 68 94 02/12/19 02:23 66 95 02/12/19 02:19 68 94 02/12/19 02:18 67 95 02/12/19 02:13 66 95 02/12/19 02:10 66 94 02/12/19 02:08 65 94 02/12/19 02:03 69 95 02/12/19 01:58 68 95 02/12/19 01:56 75 94 02/12/19 01:53 72 95 02/12/19 01:50 77 94 02/12/19 01:48 69 95 02/12/19 01:45 71 94 02/12/19 01:43 76 95 02/12/19 01:39 73 94 02/12/19 01:38 70 95 02/12/19 01:34 68 94 02/12/19 01:33 67 95 02/12/19 01:29 67 124/62 02/12/19 01:28 70 94 02/12/19 01:23 68 95 02/12/19 01:18 67 94 02/12/19 01:13 67 95 02/12/19 01:08 70 95 02/12/19 01:03 68 95 02/12/19 01:01 70 94 02/12/19 00:58 69 95 02/12/19 00:56 75 94 02/12/19 00:53 76 96 02/12/19 00:51 77 93 02/12/19 00:48 76 94 02/12/19 00:44 83 94 02/12/19 00:43 71 94 02/12/19 00:38 79 94 02/12/19 00:33 72 94 02/12/19 00:30 97.8 F 16 02/12/19 00:29 68 132/63 02/12/19 00:28 70 94 02/12/19 00:26 70 94 02/12/19 00:23 69 94 02/12/19 00:18 68 93 02/12/19 00:13 69 93 02/12/19 00:08 69 93 02/12/19 00:03 72 92 02/11/19 23:59 68 93 02/11/19 23:58 70 94 02/11/19 23:53 79 94 02/11/19 23:48 78 93 02/11/19 23:43 73 94 02/11/19 23:41 74 94 02/11/19 23:38 67 93 02/11/19 23:36 69 93 02/11/19 23:33 68 93 02/11/19 23:29 67 128/61 02/11/19 23:28 68 94 02/11/19 23:25 69 93 02/11/19 23:23 68 93 02/11/19 23:18 66 94 02/11/19 23:13 63 93 02/11/19 23:08 68 92 02/11/19 23:00 16 02/11/19 22:29 62 152/70 02/11/19 22:00 18 02/11/19 21:29 98.4 F 72 18 142/73 02/11/19 20:30 71 15 139/65 96 02/11/19 20:00 80 14 139/65 96 02/11/19 19:50 98.2 F 81 14 135/68 98 02/11/19 19:30 72 14 165/84 97 02/11/19 19:26 68 170/74 02/11/19 19:05 98.2 F 62 16 170/74 95 02/11/19 19:00 63 17 165/84 94 02/11/19 18:41 63 16 192/72 96 02/11/19 18:39 63 20 182/85 98 02/11/19 18:23 69 16 187/73 02/11/19 18:00 172/79 96 02/11/19 17:30 164/90 97 02/11/19 17:29 61 18 164/90 98 Intake and Output 02/12/19 02/12/19 02/12/19 07:59 15:59 23:59 Intake Total 2350 953.75 933.333 Output Total 2200 1650 Balance 150 -696.25 933.333 Intake: IV 750 953.75 933.333 Lactated Ringers 1,000 ml 450 943.75 @ 75 mls/hr IV DIRECT DEENA Rx#:[id number] MAGNESIUM SULFATE 40GM/ 300 933.333 1000ML 40 gm In 1,000 ml @ 2 GM/HR 50 mls/hr IV DIRECT DEENA Rx#:[id number] Right Antecubital 10 Oral 800 Intake, Free Water 800 Output: Urine 2200 1650 Indwelling Catheter 2200 1650 Other: Total, Intake Amount 800 Total, Output Amount 250 600 - Exam Lungs: Present: Normal air movement Abdomen: Present: soft Deep Tendon Reflex Grade: Normal +2 Incision: Present: normal, dry - Labs Labs: Abnormal lab results 02/11/19 02/12/19 02/12/19 Range/Units 17:25 00:30 05:51 Magnesium 4.30 H 5.20 H (1.7-2.3) mg/dL Urine WBC (Auto) 27.0 H (0.0-6.0) /HPF 02/12/19 Range/Units 12:15 Magnesium 5.80 H (1.7-2.3) mg/dL Urine WBC (Auto) (0.0-6.0) /HPF
[2019-02-13] MEDS: LACTATED RINGERS 1,000 ML IV SCH ×3 (02:25→20:39)
[2019-02-13] MEDS: LABETALOL PO SCH ×3 (02:31→22:24)
[2019-02-14] MEDS: LACTATED RINGERS 1,000 ML IV SCH (02:49)
[2019-02-14] MEDS: LABETALOL PO SCH ×2 (09:15→21:46)
[2019-02-14] MEDS: TYLENOL PO PRN (20:31)
[2019-02-15] MEDS: LABETALOL PO SCH ×2 (10:18→21:58)
[2019-02-16] MEDS: LABETALOL PO SCH (13:30)
--- NOTE | 2019-02-16 17:07 | Progress Note ---
Assessment and Plan A: Chronic hypertension with superimposed preeclampsia. Blood pressures well controlled. 2 weeks postop LTCS. P: Consulted with Dr. Newman re: this patient. Dr. Newman states it is OK to discharge patient home today on Labetalol. Rx Labetalol 300 mg, #60, 1 po BID called to [facility] pharmacy on [facility]. 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 Discussed with patient discharge instructions and warning signs. Advised patient to rest at home. BP warning signs/preeclampsia warning signs discussed with patient. Advised pt. to follow up with [facility] in 2 days for BP check. Patient voiced understanding of all instructions. Subjective - Subjective Date of service: 02/16/19 Principal diagnosis: preeclampsia and chronic hypertension Interval history: Patient was admitted on 02/11/19 for preeclampsia and chronic hypertension. Patient received magnesium sulfate after admission and this was discontinued. Patient's BPs have been controlled on Labetalol 300 mg po BID. Patient denies headache, visual disturbance, chest pain, cough, nausea or vomiting, swelling, abdominal pain, or dizziness. Patient reports scant amount of lochia. Patient is voiding without difficulty and tolerating a regular diet. Ambulating well. Patient reports: appetite normal, voiding normally, pain well controlled, flatus, bowel movement, ambulating normally, no dizzy ambulation, no nauseated Objective - Vital Signs Latest vital signs: Vital Signs Temp Pulse Resp BP BP Pulse Ox 02/16/19 15:57 72 127/69 02/16/19 12:30 99.0 F 66 18 140/61 02/16/19 08:04 99.6 F 78 18 111/75 02/16/19 04:37 97.9 F 80 20 112/68 97 02/16/19 00:19 98.1 F 59 L 20 135/68 92 02/15/19 23:40 64 18 138/66 96 02/15/19 21:58 168/80 02/15/19 20:53 97.9 F 66 18 168/80 94 Intake and Output 02/16/19 02/16/19 02/16/19 07:59 15:59 23:59 Intake Total 240 960 Balance 240 960 Intake: Oral 960 Intake, Free Water 240 Other: Total, Intake Amount 480 # Voids Void 1 - Exam Cardiovascular: Present: Regular rate, Normal S1, Normal S2 Lungs: Present: Clear to auscultation Abdomen: Present: normal appearance, soft, normal bowel sounds. Absent: distention, tenderness, guarding, rigidity Uterus: Present: normal, firm, fundal height below umbilicus. Absent: bogginess, tenderness Extremities: Present: normal. Absent: tenderness, edema Incision: Present: normal, dry, intact
--- NOTE | 2019-02-16 17:16 | Discharge Summary ---
Providers - Providers Date of Admission: 02/11/19 18:56 Date of discharge: 02/16/19 Attending physician: IRMA SENIOR MD 02/11/19 18:36 Consult to Physician [CONS] Urgent Comment: Consulting Provider: IRMA SENIOR Physician Instructions: Reason For Exam: post htn Primary care physician: [employer] Hospitalization Reason for admission: other ( preeclampsia superimposed on chronic hypertension) Discharge diagnosis: other (chronic hypertension; preeclampsia) Pertinent studies: Labs Hospital course: Stable hospital course Condition at discharge: Good Disposition: DC-01 TO HOME OR SELFCARE - Discharge Diagnoses (1) Chronic hypertension Status: Acute (2) Pre-eclampsia, Status: Acute Plan - Provider Discharge Summary Activity: routine, no sex for 6 weeks, no heavy lifting 4 weeks, no strenuous exercise Diet: routine Instructions: routine Additional instructions: Continue Labetalol 300 mg by mouth every 12 hours at home. Your prescription for Labetalol has been called in to [facility] pharmacy on [facility] and left on the voice mail. Please pick this up as soon as you are released from the hospital. Call your doctor immediately for: * Fever > 100.5 * Heavy vaginal bleeding ( >1 pad per hour) * Severe persistent headache * Shortness of breath * Reddened, hot, painful area to leg or breast * Drainage or odor from incision. * Keep incision clean and dry at all times and follow doctor's instructions regarding bathing/showering - Follow up plan Follow up: JCARLOS DUMONT MD [Staff Physician] - 02/18/19 Forms: [facility] Discharge Summary
[2019-02-16 17:35] VITALS: BP 121/79
== END 2019-02-16 17:35 | disposition home or self-care (01) | DRG 776 ==
LOC: ED 14:03 → CC1 18:56 → LD 20:34 → OB 02-13 09:40
PROVIDERS: ADMIT Obstetrics & Gynecology; ATTEND Obstetrics & Gynecology
DX: O11.5 Pre-existing hypertension with pre-eclampsia, complicating the puerperium (principal); O24.13 Pre-existing type 2 diabetes mellitus, in the puerperium; E11.9 Type 2 diabetes mellitus without complications; Z79.84 Long term (current) use of oral hypoglycemic drugs
CPT/HCPCS: 36415; 70450; 80053; 81001; 82550; 83735; 85025; 87086; 96365; G0378; J0360; J3475; J7120